=== PATIENT | female | born 1965 | race Caucasian/White ===

== ENCOUNTER → 2016-07-09 | Outpatient (REF) | payer MEDICARE, MEDICAID ==
[~2016-07-09] MED LIST: /CARB20TAB; /CARB4TA; ABIL10TA; ABIL15TA2 PO; ABIL1TAB7 PO; ABIL20TA2; ACET-654 PO; ACET65TA; ALBU17IN INH; AMMO12CR4 TOP; AMMONIUM LACTATE 12%; ARIP15TAB PO; CALC500C16 PO; CARB1TAB20 PO; CARB20TA PO; CEPA1LOZ5 PO; CLAR5CHW; CLARITIN10 PO; CLEO300C; COLA50CA5 PO; FERR325T; FERR325T PO; FERR325T3 PO; FERROUS325 PO; FLAG500T; FLON0.05; FLONASESPR NASAL; GEMF600T PO; LEVA500T; LEVA750T PO; LEVO125T3 PO; LEVO25TABR; LOPI600T; LOPID600 PO; LORA10TA2 PO; META48.54 PO; METAMUCIL PO; MILKSUS; MIRA3350 PO; MULTIVIT PO; NAPR250T; NICO21PAT TD; NICO2GUM62 PO; OCEA0.654; PANT20TA PO; PERC5TAB8; PERICOLACE PO; PRED20TA PO; RISATAB3 PO; SALI0.653; SENO8.6T5; SENOKOTTAB PO; SERO200T PO; SONA10CA6 PO; SYNT125T; SYNTHRO125 PO; SYNTHRO175 PO; SYNTHROI05 PO; SYNTHROI15 PO; TEGR200T; THERGRAN; TRAZ100T4 PO; TRAZ10TA PO; TRIPHASIL; VENTAER; VITA2000 PO; VITA20008 PO; VITAMIN D50000 UNT; VITMTA PO; ZYPR10TA PO; ZYPR20TA; ZYPR20TA PO; [UNRECOGNIZED DRUG - OTHER]; [UNRECOGNIZED DRUG - OTHER] PO; metamucil
[2016-07-09 18:44] LABS: ALBUMIN/GLOBULIN RATIO 1.14 (1.00-1.93); ALKALINE PHOSPHATASE 99 U/L (45-117); ALT/SGPT 15 U/L (12-78); ANION GAP 6 MEQ/L (8-16); AST/SGOT 11 U/L (15-37); BILIRUBIN,TOTAL 0.2 MG/DL (0.2-1.0); BLOOD UREA NITROGEN 12 MG/DL (7-18); CALCIUM LEVEL 8.7 MG/DL (8.5-10.1); CARBON DIOXIDE LEVEL 28 MEQ/L (21-32); CHLORIDE LEVEL 104 MEQ/L (98-107); CREATININE FOR GFR 0.55 MG/DL (0.55-1.02); GLOMERULAR FILTRATION RATE > 60.0 (>51); GLUCOSE, FASTING 78 MG/DL (70-105); POTASSIUM SERUM 4.1 MEQ/L (3.5-5.1); SODIUM LEVEL 138 MEQ/L (136-145); TOTAL PROTEIN 7.5 GM/DL (6.4-8.2)
[2016-07-09 19:05] LABS: MEAN CORPUSCULAR HEMOGLOBIN 33.7 pg (27.0-33.0); MEAN CORPUSCULAR VOLUME 96.5 fl (80.0-96.0); RED CELL DISTRIBUTION WIDTH 12.6 % (11.5-14.5); WHITE BLOOD COUNT 7.2 K/mm3 (4.0-10.0)
== END ==
LOC: M SFHCLERA 10:04
PROVIDERS: ATTEND Family Medicine
DX: E87.8 Other disorders of electrolyte and fluid balance, not elsewhere classified (principal)
CPT/HCPCS: 80053; 85027; G0463

== ENCOUNTER 2016-07-20 13:54 | Inpatient (IN) | payer MEDICARE, MEDICAID ==
[~2016-07-20] VITALS: Ht 154.9 cm; Wt 84.0 kg
[~2016-07-20 13:54] MED LIST changes: -ARIP15TAB PO; -CARB20TA PO; -COLA50CA5 PO; -NICO21PAT TD; -SERO200T PO; -SONA10CA6 PO; -TRAZ10TA PO; -VITA2000 PO; -[UNRECOGNIZED DRUG - OTHER]
[2016-07-20] MEDS ORDERED: [UNRECOGNIZED DRUG - OTHER] (14:13)
[2016-07-20] MEDS ORDERED: MIRA3350 PO (14:13)
[2016-07-20] MEDS ORDERED: metamucil (14:13)
[2016-07-20] MEDS ORDERED: SERO200T PO (14:13)
[2016-07-20] MEDS ORDERED: VITA2000 PO (14:13)
[2016-07-20] MEDS ORDERED: SONA10CA6 PO (14:13)
[2016-07-20] MEDS ORDERED: FERR325T PO (19:36)
[2016-07-20] MEDS ORDERED: COLA1CAP PO (19:36)
[2016-07-20 20:50] VITALS: BP 136/79
[2016-07-20] MEDS ORDERED: MAALOX 30 ML SUSP *UDC PO PRN (23:30)
[2016-07-20] MEDS ORDERED: MOM 30ML SUSPENSION UDC PO PRN (23:30)
[2016-07-21] MEDS ORDERED: traZODone 100 MG TAB PO ONE (00:30)
[2016-07-21] MEDS: ACETAMINOPHEN TAB 650MG DOSE (2X325MG) PO PRN ×3 (00:37→20:28)
[2016-07-21 06:00] VITALS: BP 128/72
[2016-07-21] MEDS: NICOTINE 21MG/24HR 1 EA TRANSDERMAL TD SCH (09:05)
[2016-07-21] MEDS: ARIPiprazole 15 MG TAB (AbiLIFY) PO SCH ×2 (09:47→20:25)
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
[2016-07-21] MEDS ORDERED: DOCUSATE SODIUM 100 MG CAP PO PRN (10:45)
[2016-07-21] MEDS ORDERED: SODIUM CHLORIDE NASAL 0.65% SPRAY BTL (OCEAN) PRN (10:45)
[2016-07-21] MEDS ORDERED: ALBUTEROL 90 MCG/ACT 8GM HFA INHALER INH PRN (10:45)
--- NOTE | 2016-07-21 10:55 | HPEPDOC ---
Medical History and Physical Date of Admission Jul 20, 2016 at 19:08 History and Physical PCP: Dr Fred Peters ATTENDING: Dr. Stefan Boyd HPI: 51yoF admitted to [facility] for Schizophrenia, being medically examined today. Patient complains of low back pain which is across her low back. She also complains of right hip pain. She is ambulating without any assistive devices. She does not have any weakness in her legs. No numbness or tingling. She does wear adult diapers. She states she has chronic urinary and bowel incontinence especially with sneezing or coughing. This has been unchanged for her. She does not complain of neck pain. No weakness, numbness, or tingling in upper extremities. Denies any fevers, chills, weakness, fatigue, OLIVER, CP, SOB, cough, palpitations, abdominal pain, N/V/D or changes in bowel or bladder habits. PMHx: Schizophrenia Hyperlipidemia Hypothyroidism Chronic venous insufficiency Vitamin D deficiency Seizure disorder Moderate mental retardation Obesity, BMI 35.0 Asthma Allergic rhinitis Chronic constipation Chronic low back pain PSHX: Pt is unable to provide accurate history, taken from clinic records Cholecystectomy Cleft palate repair Question of per chart Question of left lumbar hemilaminectomy at L5 x-ray Teeth extractions SOCHX: Resides in: [facility] residential home Marital Status: Single Kids: None Employment: Unemployed Tobacco use: 6 per day ETOH: One per week Illicit Drugs: Patient states uses marijuana IV Drug Use: Denies Tattoos done unprofessionally: Denies FAMHX: Mother: , cancer Father: , unknown Siblings: 2 Alive, well Children: None ROS: As noted in HPI, otherwise 11pt ROS of systems reviewed and remarkable only for LMP unknown PE: GEN: 51yoF, appears stated age. Well-nourished, well developed. No acute distress. Alert and oriented x 3. Pleasant, interactive. HEENT: Normocephalic, atraumatic. Pupils are equal, round, and reactive to light. Extraocular movements are intact. No nystagmus appreciated. Sclera are nonicteric. Conjunctiva without injection. Nose midline. Nasal turbinates without bogginess. EACs both patent BL. TMs both visualized and ashby with good cone of light, no bulging or erythema. No facial asymmetry. Moist mucous membranes. Dentition fair. Pharynx pink and moist, no cobblestoning. Neck supple , trachea midline. No lymphadenopathy or thyromegaly appreciated. CHEST: Regular rate and rhythm, +S1, +S2 LUNGS: Clear to auscultation bilaterally. No wheezes, rales, or rhonchi. Breathing appears symmetric and easy. Patient is speaking in full sentences. No accessory muscle use. ABD: Round, soft, non-tender, non-distended. +Bowel sounds throughout. No rebound or guarding. No costovertebral angle tenderness. EXT: Pulses 2+ bilaterally dorsalis pedis and radial. No lower extremity edema appreciated. SKIN: [place], dry, warm. Capillary refill <2sec. No rashes. NEURO: Alert and oriented x 3. Cranial nerves III-XII are intact. No focal deficits appreciated. EK07/17/15 SINUS RHYTHM WITH FIRST DEGREE AV BLOCK MARKED LEFT AXIS DEVIATION Absence of septal q waves noted 07-13-2015. Toxicology not obtained. A&P: 51yoF admitted to [facility] for Schizophrenia 1. Psych. Plan per Psychiatry. EKG on file. Baseline CBC/CMP/Hcg pending. Requested UA/UC as well. 2. Nicotine dependence. Patch available. 3. Borderline EKG. No cardiac signs or symptoms appreciated on exam, follow with PCP. 4. Follow up with PCP on discharge. 5. Substance use. Per psychiatry. 6. Asthma. Continue albuterol 2 puffs every 4 hours as needed. 7. Hyperlipidemia. Continue gemfibrozil 600 mg by mouth twice a day. 8. Hypothyroidism. Continue supplement. TSH is pending. 9. Allergic rhinitis. Continue loratadine. 10. Seizure disorder. Continue Tegretol 400 mg by mouth twice a day. Tegretol level is pending. 11. Vitamin D deficiency. Continue supplement. 12. Chronic constipation. Continue bowel care. 13. Chronic low back pain/right hip pain. Check x-ray of lumbosacral spine and right hip. Tylenol as needed. 14. Iron deficiency anemia. Continue ferrous sulfate 325 mg by mouth twice a day. 15. Antoinette CHERRY present throughout exam. Vital Signs Vital Signs Label Value Date Time Patient Temperature 97.8 degrees F 07/21/16 0600 Pulse 79 07/21/16 0600 Respiratory Rate 16 bpm 07/21/16 0600 Blood Pressure Assessment 128/72 (90) 07/21/16 0600 Bedside Pulse Oximetry 95 % 07/20/162049 Item Value Date Time Oxygen Delivery Method Room Air 07/20/162049 Laboratory Data Labs 24H Item Value Date Time White Blood Count 7.2 K/mm3 07/09/16 1033 Sodium Level 138 MEQ/L 07/09/16 1033 Potassium Level 4.1 MEQ/L 07/09/16 1033 Chloride Level 104 MEQ/L 07/09/16 1033 Carbon Dioxide Level 28 MEQ/L 07/09/16 1033 Anion Gap 6 MEQ/L L 07/09/16 1033 Blood Urea Nitrogen 12 MG/DL 07/09/16 1033 Creatinine 0.55 MG/DL 07/09/16 1033 Glomerular Filtration Rate > 60.0 07/09/16 1033 Fasting Glucose 78 MG/DL 07/09/16 1033 Calcium Level 8.7 MG/DL 07/09/16 1033 Total Bilirubin 0.2 MG/DL 07/09/16 1033 Aspartate Amino Transf (AST/SGOT) 11 U/L L 07/09/16 1033 Alanine Aminotransferase (ALT/SGPT) 15 U/L 07/09/16 1033 Alkaline Phosphatase 99 U/L 07/09/16 1033 Total Protein 7.5 GM/DL 07/09/16 1033 Albumin 4.0 GM/DL 07/09/16 1033 Albumin/Globulin Ratio 1.14 07/09/16 1033 Red Blood Count 3.67 M/mm3 L 07/09/16 1033 Hemoglobin 12.4 g/dl 07/09/16 1033 Hematocrit 35.4 % L 07/09/16 1033 Mean Corpuscular Volume 96.5 fl H 07/09/16 1033 Mean Corpuscular Hemoglobin 33.7 pg H 07/09/16 1033 Mean Corpuscular Hemoglobin Concent 35.0 g/dl 07/09/16 1033 Red Cell Distribution Width 12.6 % 07/09/16 1033 Platelet Count 123 k/mm3 L 07/09/16 1033 Home Medications Scheduled (Sonata) 10 Mg Cap 10 MG PO QHS Aripiprazole (Abilify) 20 Mg Tab 20 MG PO QHS Aripiprazole (Abilify) 15 Mg Tab 15 MG PO QAM Carbamazepine (Carbamazepine) 200 Mg Tab 400 MG PO BID Cholecalciferol (Vitamin D3) 2,000 Unit Cap 2,000 UNIT PO DAILY Docusate Sodium (Colace Clear) 50 Mg Cap 50 MG PO DAILY Ferrous Sulfate (Ferrous Sulfate) 325 Mg Tab 325 MG PO BID Gemfibrozil (Gemfibrozil) 600 Mg Tab 600 MG PO BID Levothyroxine Sodium (Synthroid) 125 Mcg Tab 125 MCG PO QAM Loratadine (Loratadine) 10 Mg Tab 10 MG PO DAILY Multivitamins *[facility] STOCKED* (Thera M Plus *[facility] STOCKED*) 1 Tab Tab 1 TAB PO DAILY Polyethylene Glycol (Miralax) 1 Pow Pow 17 GM PO QWEEK FRIDAYS Psyllium (Metamucil) 48.57 % Pow 1 TSP PO QHS Quetiapine Fumerate (Seroquel) 200 Mg Tab 200 MG PO QHS Trazodone HCl (Trazodone HCl) 100 Mg Tab 100 MG PO QHS Scheduled PRN (Saline Nasal [place]) 0.65 % Spr 0.65 % NA PRN PRN PRN CONGESTION (Ammonium Lactate) 12 % Cre 12 % TOP DAILY PRN PRN DRY SKIN applies to feet Acetaminophen (Acetaminophen) 325 Mg Tab 650 MG PO Q4H PRN PRN PAIN Albuterol Sulfate (Ventolin Hfa) 200 Puff/8 Gm Aers 2 PUFF INH Q4H PRN PRN SHORTNESS OF BREATH Allergies Coded Allergies: Lurasidone (Verified Allergy, Severe, manic, hallucinations, 07/20/16) Oxycodone (Verified Allergy, Mild, HIVES, 07/29/12) Penicillins (Verified Allergy, Mild, HIVES, 07/29/12) Amoxicillin (Unverified Allergy, Unknown, UNKNOWN, 07/13/15) Cephalosporins (Verified Allergy, Unknown, 07/29/12) SEASONAL ALLERGIES (Verified Allergy, Unknown, 10/16/09) Genevieve Naik Jul 21, 2016 10:55
[2016-07-21] MEDS: VITAMIN D 1,000 INTERNATIONAL UNITS TABLET PO SCH (11:30)
[2016-07-21] MEDS: carBAMazepine 200 MG TAB PO SCH ×2 (11:30→20:25)
[2016-07-21] MEDS: LORATADINE 10 MG TAB PO SCH (11:30)
[2016-07-21] MEDS: FERROUS SULFATE 325MG TAB PO SCH ×2 (11:30→20:26)
--- NOTE | 2016-07-21 11:43 | REP ---
PARTIAL LUMBAR SPINE, FOUR VIEWS: HISTORY: Back pain. COMPARISON: 08/21/2008 There is no acute fracture. The L4-5 and L5-S1 intervertebral discs are decreased in height consistent with disc degeneration. There are 4 mm on grade 1 spondylolisthesis of L5 on S1. The patient is status post left L4-5 laminectomy. Surgical clips are present in the right upper quadrant. IMPRESSION: Degenerative change as described above. Signed by Malik Tsang MD 07/21/2016 11:46 A
[2016-07-21 11:47] LABS: MEAN CORPUSCULAR HEMOGLOBIN 32.8 pg (27.0-33.0); MEAN CORPUSCULAR HGB CONC 35.8 g/dl (32.0-36.5); MEAN CORPUSCULAR VOLUME 91.5 fl (80.0-96.0); RED CELL DISTRIBUTION WIDTH 12.2 % (11.5-14.5)
--- NOTE | 2016-07-21 11:47 | REP ---
RIGHT HIP, TWO VIEWS: HISTORY: Pain. COMPARISON: 08/21/2008 There is no acute fracture or dislocation. There is narrowing of the joint space. IMPRESSION: Degenerative change as described above. Signed by Malik Tsang MD 07/21/2016 11:56 A
[2016-07-21 11:52] LABS: CONTROL LINE HCG INT CTR LINE PRESENT
[2016-07-21] MEDS: GEMFIBROZIL 600 MG TAB PO SCH ×2 (12:17→20:27)
[2016-07-21 12:18] LABS: ALBUMIN 3.9 GM/DL (3.2-5.2); ALBUMIN/GLOBULIN RATIO 1.03 (1.00-1.93); ALKALINE PHOSPHATASE 110 U/L (45-117); ALT/SGPT 21 U/L (12-78); ANION GAP 6 MEQ/L (8-16); AST/SGOT 18 U/L (15-37); BILIRUBIN,TOTAL 0.3 MG/DL (0.2-1.0); BLOOD UREA NITROGEN 9 MG/DL (7-18); CARBON DIOXIDE LEVEL 27 MEQ/L (21-32); CHLORIDE LEVEL 102 MEQ/L (98-107); CREATININE FOR GFR 0.44 MG/DL (0.55-1.02); GLOMERULAR FILTRATION RATE > 60.0 (>51); GLUCOSE, FASTING 80 MG/DL (70-105); POTASSIUM SERUM 4.1 MEQ/L (3.5-5.1); SODIUM LEVEL 135 MEQ/L (136-145); TOTAL PROTEIN 7.7 GM/DL (6.4-8.2)
[2016-07-21 18:23] VITALS: BP 123/69
[2016-07-21] MEDS ORDERED: hydrOXYzine 50 MG TAB PO ONE (19:15)
[2016-07-21] MEDS: METAMUCIL (PSYLLIUM) PACKET PO SCH (20:25)
[2016-07-21] MEDS: QUEtiapine FUMARATE 200 MG TAB PO SCH (20:26)
[2016-07-21] MEDS: traZODone 100 MG TAB PO SCH (20:27)
[2016-07-22 06:22] VITALS: BP 114/77
[2016-07-22] MEDS: LEVOTHYROXINE 0.125 MG TAB (125 MCG) PO SCH (06:30)
[2016-07-22] MEDS: NICOTINE 21MG/24HR 1 EA TRANSDERMAL TD SCH (08:36)
[2016-07-22] MEDS: carBAMazepine 200 MG TAB PO SCH ×2 (08:37→21:38)
[2016-07-22] MEDS: GEMFIBROZIL 600 MG TAB PO SCH ×2 (08:37→21:38)
[2016-07-22] MEDS: ARIPiprazole 15 MG TAB (AbiLIFY) PO SCH ×2 (08:37→21:38)
[2016-07-22] MEDS: ACETAMINOPHEN TAB 650MG DOSE (2X325MG) PO PRN (08:37)
[2016-07-22] MEDS: FERROUS SULFATE 325MG TAB PO SCH ×2 (08:37→21:38)
[2016-07-22] MEDS: VITAMIN D 1,000 INTERNATIONAL UNITS TABLET PO SCH (08:37)
[2016-07-22] MEDS: LORATADINE 10 MG TAB PO SCH (08:37)
[2016-07-22] MEDS ORDERED: ONDANSETRON 4 MG ORAL DISINTEGRATING TAB (S0181) PO ONE (09:15)
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
[2016-07-22 18:00] VITALS: BP 115/73
[2016-07-22] MEDS: METAMUCIL (PSYLLIUM) PACKET PO SCH (21:38)
[2016-07-22] MEDS: QUEtiapine FUMARATE 200 MG TAB PO SCH (21:38)
[2016-07-22] MEDS: traZODone 100 MG TAB PO SCH (21:38)
[2016-07-23] MEDS: LEVOTHYROXINE 0.125 MG TAB (125 MCG) PO SCH (05:53)
[2016-07-23 06:12] VITALS: BP 150/68
[2016-07-23 07:48] LABS: ALBUMIN 3.7 GM/DL (3.2-5.2); ALBUMIN/GLOBULIN RATIO 1.09 (1.00-1.93); ALKALINE PHOSPHATASE 96 U/L (45-117); ALT/SGPT 19 U/L (12-78); ANION GAP 9 MEQ/L (8-16); AST/SGOT 13 U/L (15-37); BILIRUBIN,TOTAL 0.2 MG/DL (0.2-1.0); BLOOD UREA NITROGEN 8 MG/DL (7-18); CALCIUM LEVEL 8.1 MG/DL (8.5-10.1); CARBON DIOXIDE LEVEL 24 MEQ/L (21-32); CHLORIDE LEVEL 100 MEQ/L (98-107); CREATININE FOR GFR 0.51 MG/DL (0.55-1.02); GLOMERULAR FILTRATION RATE > 60.0 (>51); GLUCOSE, FASTING 93 MG/DL (70-105); POTASSIUM SERUM 4.1 MEQ/L (3.5-5.1); SODIUM LEVEL 133 MEQ/L (136-145); T UPTAKE 32 % (30-39); THYROXINE (T4) 4.1 UG/DL (4.5-12.0); TOTAL PROTEIN 7.1 GM/DL (6.4-8.2)
[2016-07-23 08:27] LABS: MEAN CORPUSCULAR HEMOGLOBIN 33.2 pg (27.0-33.0); MEAN CORPUSCULAR HGB CONC 35.9 g/dl (32.0-36.5); MEAN CORPUSCULAR VOLUME 92.4 fl (80.0-96.0); RED CELL DISTRIBUTION WIDTH 12.2 % (11.5-14.5); WHITE BLOOD COUNT 5.9 K/mm3 (4.0-10.0)
[2016-07-23] MEDS: NICOTINE 21MG/24HR 1 EA TRANSDERMAL TD SCH (09:00)
[2016-07-23] MEDS: ARIPiprazole 15 MG TAB (AbiLIFY) PO SCH ×2 (09:24→20:31)
[2016-07-23] MEDS: LORATADINE 10 MG TAB PO SCH (09:24)
[2016-07-23] MEDS: GEMFIBROZIL 600 MG TAB PO SCH ×2 (09:24→20:31)
[2016-07-23] MEDS: VITAMIN D 1,000 INTERNATIONAL UNITS TABLET PO SCH (09:24)
[2016-07-23] MEDS: FERROUS SULFATE 325MG TAB PO SCH ×2 (09:24→20:31)
[2016-07-23] MEDS: carBAMazepine 200 MG TAB PO SCH ×2 (09:24→20:33)
[2016-07-23] MEDS: ACETAMINOPHEN TAB 650MG DOSE (2X325MG) PO PRN (09:25)
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
[2016-07-23 18:00] VITALS: BP 112/66
[2016-07-23] MEDS: traZODone 100 MG TAB PO SCH (20:30)
[2016-07-23] MEDS: QUEtiapine FUMARATE 200 MG TAB PO SCH (20:31)
[2016-07-23] MEDS: METAMUCIL (PSYLLIUM) PACKET PO SCH (20:33)
[2016-07-24] MEDS: LEVOTHYROXINE 0.125 MG TAB (125 MCG) PO SCH (06:06)
[2016-07-24 06:38] VITALS: BP 137/84
[2016-07-24] MEDS ORDERED: TRAZ10TA PO (06:59)
[2016-07-24] MEDS ORDERED: CARB20TA PO (06:59)
[2016-07-24] MEDS ORDERED: ARIP15TAB PO (06:59)
[2016-07-24 07:26] LABS: BASO % 0.2 % (0.0-1.0); EOS % 0.3 % (0.0-3.0); LARGE UNSTAINED CELL # 0.1 K/mm3 (0.0-0.4); LARGE UNSTAINED CELL % 1.8 % (0.0-4.0); LYMPH % 43.4 % (24.0-44.0); MEAN CORPUSCULAR HEMOGLOBIN 33.6 pg (27.0-33.0); MEAN CORPUSCULAR HGB CONC 35.8 g/dl (32.0-36.5); MEAN CORPUSCULAR VOLUME 93.9 fl (80.0-96.0); MONO # 0.3 K/mm3 (0.0-0.8); NEUTROPHILS # 3.3 K/mm3 (1.8-7.7); NEUTROPHILS % 50.4 % (36.0-66.0); PLATELET COUNT, AUTOMATED 176 k/mm3 (150-450); RED CELL DISTRIBUTION WIDTH 12.4 % (11.5-14.5); WHITE BLOOD COUNT 6.6 K/mm3 (4.0-10.0)
[2016-07-24] MEDS: GEMFIBROZIL 600 MG TAB PO SCH (08:50)
[2016-07-24] MEDS: FERROUS SULFATE 325MG TAB PO SCH (08:50)
[2016-07-24] MEDS: LORATADINE 10 MG TAB PO SCH (08:50)
[2016-07-24] MEDS: VITAMIN D 1,000 INTERNATIONAL UNITS TABLET PO SCH (08:50)
[2016-07-24] MEDS: ARIPiprazole 15 MG TAB (AbiLIFY) PO SCH (08:50)
[2016-07-24] MEDS: NICOTINE 21MG/24HR 1 EA TRANSDERMAL TD SCH (08:51)
[2016-07-24] MEDS: carBAMazepine 200 MG TAB PO SCH (08:51)
[2016-07-24] MEDS ORDERED: NICO21PAT TD (09:19)
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
== END 2016-07-24 14:00 | disposition home or self-care (01) | DRG 885 ==
LOC: M ED 16:55 → M ED INP 19:08 → M PSY 20:50
PROVIDERS: ADMIT Psychiatry & Neurology Psychiatry; ATTEND Psychiatry & Neurology Child & Adolescent Psychiatry
DX: F29 Unspecified psychosis not due to a substance or known physiological condition (principal); E78.5 Hyperlipidemia, unspecified; E03.9 Hypothyroidism, unspecified; E55.9 Vitamin D deficiency, unspecified; D50.9 Iron deficiency anemia, unspecified; E66.9 Obesity, unspecified; Z88.0 Allergy status to penicillin; Z88.5 Allergy status to narcotic agent; K59.00 Constipation, unspecified; M54.5 Low back pain; F17.200 Nicotine dependence, unspecified, uncomplicated; G40.909 Epilepsy, unspecified, not intractable, without status epilepticus; J30.9 Allergic rhinitis, unspecified; F71 Moderate intellectual disabilities

== ENCOUNTER → 2016-08-12 | Outpatient (REF) | payer MEDICARE, MEDICAID ==
[~2016-08-12] MED LIST changes: +ARIP15TAB PO; +CARB20TA PO; +COLA50CA5 PO; +NICO21PAT TD; +SERO200T PO; +SONA10CA6 PO; +TRAZ10TA PO; +VITA2000 PO; +[UNRECOGNIZED DRUG - OTHER]
== END ==
LOC: M SFHCLERA 09:03
PROVIDERS: ATTEND Family Medicine
DX: D23.61 Other benign neoplasm of skin of right upper limb, including shoulder (principal)

== ENCOUNTER 2016-09-15 09:12 | Outpatient (RCR) | payer MEDICARE, MEDICAID | END 2016-09-23 | disposition home or self-care (01) | LOC: M PT 09:12 | PROVIDERS: ATTEND Family Medicine | DX: Z51.89 Encounter for other specified aftercare (principal); M25.551 Pain in right hip | CPT/HCPCS: 97110; 97140; 97162; G8978; G8979; G8980 ==

== ENCOUNTER → 2016-12-07 | Outpatient (CLI) | payer MEDICARE, MEDICAID ==
[~2016-12-07] MED LIST changes: -ABIL15TA2 PO; +ABIL1TAB12 PO; -ABIL1TAB7 PO; +ABIL20TA5 PO; +ABIL30TA4 PO; -ACET-654 PO; +ACET1TAB17 PO; +FERR1TAB8 PO; -FERR325T PO; -LEVA750T PO; +LEVA750T7 PO; -LEVO125T3 PO; +LEVO125T4 PO; +LITH300C PO; +MINI2CAP PO; +SALI0.6523; -SALI0.653; +SONA10CA23 PO; -SONA10CA6 PO; +TRAZ-136 PO; -TRAZ100T4 PO
--- NOTE | 2016-12-07 11:32 | REP ---
Bilateral lower extremity duplex venous ultrasound: History: Bilateral varicose veins. Question reflux. Findings: The deep veins are anechoic and fully compressible from the groin to the popliteal fossa in both lower extremities on two-dimensional scanning. Color flow imaging is homogeneous. Spectral Doppler interrogation shows normal manual augmentation of flow and respiratory variation in flow bilaterally. There is no evidence of deep vein thrombosis. Reflux findings: In the right lower extremity, no deep or superficial vein reflux is identified. The greater saphenous vein measures 4 mm in AP dimension at the saphenofemoral junction, 3 mm in AP dimension at the midthigh, and 2 mm in AP dimension at the knee. On the left, reflux greater than 0.5 seconds in duration is seen in the common femoral vein. 4.3 second duration reflux is observed in the greater saphenous vein at the saphenofemoral junction where it measures 15 mm in AP dimension. Reflux lasting 8.5 seconds in duration is seen in a 7 mm greater saphenous vein at mid thigh level. No reflux is observed at the knee and the greater saphenous vein at this level measures 2.3 mm. The lesser saphenous vein showed no evidence of reflux and measured 4.4 mm. No other deep system reflux is seen. There are collateral varicose veins in the lower leg. Impression: 1. No evidence of DVT. 2. Significant reflux is noted on the left involving greater saphenous vein and also in the common femoral vein. Signed by Alejandro Romeo MD 12/07/2016 02:11 P
== END ==
LOC: M RAD 08:37
PROVIDERS: ATTEND Surgery Vascular Surgery
DX: I83.813 Varicose veins of bilateral lower extremities with pain (principal)

== ENCOUNTER 2017-01-22 07:42 | Day surgery (SDC) | payer MEDICARE, MEDICAID ==
[~2017-01-22] VITALS: Ht 154.9 cm; Wt 88.9 kg
[2017-01-22] MEDS ORDERED: LR 1,000 ML IV ONE (07:45)
[2017-01-22] MEDS ORDERED: LIDOCAINE W/EPINEPHRINE 1% 20ML VIAL As Ordered ONE (08:37)
[2017-01-22] MEDS ORDERED: fentaNYL 100 MCG/2 ML INJECTION (J3010) As Ordered ONE ×2 (09:06→09:25)
[2017-01-22] MEDS ORDERED: MIDAZOLAM INJ 2 MG/2 ML VIAL (J2250) As Ordered ONE (09:06)
[2017-01-22] MEDS ORDERED: PROPOFOL 200 MG/20 ML VIAL As Ordered ONE ×2 (09:06→09:40)
[2017-01-22] MEDS ORDERED: LIDOCAINE 2% INJ 100 MG/5 ML SDV (FOR ANES.) As Ordered ONE (09:06)
[2017-01-22] MEDS ORDERED: ACETAMINOPHEN TAB 650MG DOSE (2X325MG) PO ONE (10:15)
[2017-01-22 11:05] VITALS: BP 126/66
--- NOTE | 2017-02-03 12:17 | RO ---
DATE OF PROCEDURE: 01/22/2017 PREPROCEDURE DIAGNOSES: Left lower extremity varicose veins. Left lower extremity greater saphenous vein valvular insufficiency. Left lower extremity pain, swelling, numbness, tingling, and discoloration. POSTPROCEDURE DIAGNOSES: Left lower extremity varicose veins. Left lower extremity greater saphenous vein valvular insufficiency. Left lower extremity pain, swelling, numbness, tingling, and discoloration. PROCEDURE: Left greater saphenous vein radiofrequency ablation greater than 20 stab phlebectomies of varicose veins in the left lower extremity. ATTENDING SURGEON: Dr. Kaci Peter DISC JOCKEY: None. ANESTHESIA: Local monitored anesthesia care (MAC). INDICATION: The patient is a 51-year-old female with significant pain and discomfort in her left lower extremity with a large number of large varicosities who underwent evaluation, was found to have left greater saphenous vein valvular insufficiency. Patient was evaluated, and recommendation was to undergo a left greater saphenous vein radiofrequency ablation with stab phlebectomy of the varicosities. Risks, benefits, and alternative treatment options were discussed with the patient. Alternative treatment options included, but were not limited to, no intervention. Benefits included, but were not limited to, relief of symptoms. Risks included, but were not limited to, infection, bleeding, renal failure requiring hemodialysis, possible need for further open surgical intervention, cerebrovascular accident, myocardial infarction, pulmonary embolus, deep venous thrombosis (DVT), loss of limb, loss of life, and poor outcome. Patient's questions were answered. Patient voices understanding of these risks, benefits, and alternative treatment options and agrees to proceed and accepts the associated risks of the procedure. Patient's health care proxy is her sister, who provided consent for the procedure. ESTIMATED BLOOD LOSS: 50 mL. INTRAVENOUS FLUIDS: 300 mL. SPECIMEN: Left lower extremity varicose veins. COMPLICATIONS: None. DRAINS: None. IMPLANTS: None. DESCRIPTION OF PROCEDURE: Patient was taken to the operating room, placed supine on the operating room table, and the left lower extremity was prepped and draped in a standard surgical fashion. Ultrasound was then used to guide cannulation into the left greater saphenous vein. A catheter was placed in the greater saphenous vein after which the tumescent solution was then directed circumferentially around the greater saphenous vein, and the greater saphenous vein was then ablated from 2 cm distal to the saphenofemoral junction to the entry site in the below-knee region. The phlebectomies were then performed through multiple stab incisions with greater than 20 stab phlebectomies performed. The stab incisions were closed with trevor. Dressings were then applied. Patient tolerated the procedure well. All instruments, sponge, and needle counts were correct at the end of the case. There were no complications. Dr. Peter was present for and directed the entire case. Patient was transferred to the recovery room, awake, alert, extubated, and in stable condition.
== END 2017-01-22 11:25 | disposition home or self-care (01) ==
LOC: M SDC 07:42
PROVIDERS: ATTEND Surgery Vascular Surgery
DX: I83.812 Varicose veins of left lower extremity with pain (principal); I87.2 Venous insufficiency (chronic) (peripheral); E03.9 Hypothyroidism, unspecified; E78.00 Pure hypercholesterolemia, unspecified; F41.9 Anxiety disorder, unspecified; F32.9 Major depressive disorder, single episode, unspecified; F43.10 Post-traumatic stress disorder, unspecified; F20.0 Paranoid schizophrenia; K59.00 Constipation, unspecified; D64.9 Anemia, unspecified; F70 Mild intellectual disabilities; R56.9 Unspecified convulsions; J30.9 Allergic rhinitis, unspecified; G47.33 Obstructive sleep apnea (adult) (pediatric); Z88.0 Allergy status to penicillin; Z88.1 Allergy status to other antibiotic agents; Z88.5 Allergy status to narcotic agent; Z79.899 Other long term (current) drug therapy; Z72.0 Tobacco use
CPT/HCPCS: 36475; 37766; 88300; J2250; J3010

== ENCOUNTER → 2017-02-01 | Outpatient (CLI) | payer MEDICARE, MEDICAID ==
--- NOTE | 2017-02-01 12:35 | REP ---
UNILATERAL LEFT LOWER EXTREMITY DUPLEX VENOUS: HISTORY: Deep venous thrombosis. COMPARISON: 12/07/2016 The patient is status post ablation of the greater saphenous vein. There are no filling defects in the deep venous system. The deep venous system is patent. IMPRESSION: There is no deep venous thrombosis. Signed by Malik Tsang MD 02/01/2017 12:43 P
== END ==
LOC: M RAD 11:09
PROVIDERS: ATTEND Surgery Vascular Surgery
DX: I83.812 Varicose veins of left lower extremity with pain (principal)

== ENCOUNTER → 2017-03-12 | Outpatient (CLI) | payer MEDICARE, MEDICAID ==
--- NOTE | 2017-03-12 09:35 | REPMRS ---
Patient History The patient states she has not had a clinical breast exam in over a year. Patient is postmenopausal and is nulliparous. No known family history of cancer. Took hormonal contraceptives for 25 years. Digital Mammo Screening Bilat: March 12, 2017 - Exam #: [id number] Bilateral CC and MLO view(s) were taken. Technologist: Sidra Hamm Technologist Prior study comparison: February 18, 2016, digital woman screen mammo, performed at [facility]. November 26, 2014, digital bilateral screening mammo, performed at [facility]. FINDINGS: There are scattered fibroglandular densities. There has been no change in the appearance of the mammogram from the prior studies. There is a mild amount of residual fibroglandular tissue which is fairly symmetric. There is no interval development of dominant mass, architectural distortion, or clustered microcalcification suggestive of malignancy. ASSESSMENT: BI-RADS/ACR category 1 mammogram. Negative. Recommendation Routine screening mammogram in 1 year (for women over age 40). This mammogram was interpreted with the aid of an FDA-approved computer-aided dectection system. Electronically Signed By: Mendez Pina MD 03/12/17 [id number]
== END ==
LOC: M RAD 08:52
PROVIDERS: ATTEND Physician Assistant
DX: Z12.31 Encounter for screening mammogram for malignant neoplasm of breast (principal); Z78.0 Asymptomatic menopausal state; Z92.0 Personal history of contraception

== ENCOUNTER → 2017-05-11 | Outpatient (REF) | payer MEDICARE, MEDICAID | LOC: M SFHCLERA 14:48 | DX: E03.9 Hypothyroidism, unspecified (principal) | CPT/HCPCS: 84443 ==

== ENCOUNTER → 2017-05-17 | Outpatient (CLI) | payer MEDICARE, MEDICAID | LOC: M WUC 17:18 | DX: R06.2 Wheezing (principal) | CPT/HCPCS: 71046 ==

== ENCOUNTER → 2017-07-28 | Outpatient (REF) | payer MEDICARE, MEDICAID | LOC: M SFHCLERA 15:49 | DX: F20.9 Schizophrenia, unspecified (principal); Z53.8 Procedure and treatment not carried out for other reasons ==

== ENCOUNTER → 2017-10-21 | Outpatient (CLI) | payer MEDICARE, MEDICAID ==
[2017-10-21 08:08] LABS: BASO % 0.1 % (0.0-1.0); HEMATOCRIT 39.3 % (36.0-47.0); IMMATURE GRANULOCYTE % 0.4 % (0-3.0); LYMPH # 2.5 10^3/uL (1.5-4.5); LYMPH % 30.6 % (24.0-44.0); MEAN CORPUSCULAR HEMOGLOBIN 33.9 pg (27.0-33.0); MEAN CORPUSCULAR HGB CONC 35.6 g/dl (32.0-36.5); MEAN CORPUSCULAR VOLUME 95.2 fl (80.0-96.0); MONO # 0.5 10^3/uL (0.0-0.8); NEUTROPHILS # 5.2 10^3/uL (1.8-7.7); NEUTROPHILS % 62.9 % (36.0-66.0); PLATELET COUNT, AUTOMATED 188 10^3/uL (150-450); RED BLOOD COUNT 4.13 10^6/uL (4.00-5.40); WHITE BLOOD COUNT 8.3 10^3/uL (4.0-10.0)
[2017-10-21 08:57] LABS: ALBUMIN 3.7 GM/DL (3.2-5.2); ALKALINE PHOSPHATASE 110 U/L (45-117); ALT/SGPT 19 U/L (12-78); ANION GAP 7 MEQ/L (8-16); AST/SGOT 10 U/L (7-37); BILIRUBIN,TOTAL 0.4 MG/DL (0.2-1.0); BLOOD UREA NITROGEN 9 MG/DL (7-18); CALCIUM LEVEL 8.6 MG/DL (8.5-10.1); CARBAMAZEPINE (TEGRETOL) LEVEL 8.3 UG/ML (4.0-10.0); CARBON DIOXIDE LEVEL 27 MEQ/L (21-32); CHLORIDE LEVEL 108 MEQ/L (98-107); CHOLESTEROL LEVEL 144 MG/DL (<200); CHOLESTEROL RISK RATIO 2.571 (<5); CREATININE FOR GFR 0.51 MG/DL (0.55-1.30); GLOMERULAR FILTRATION RATE > 60.0 (>51); GLUCOSE, FASTING 94 MG/DL (70-100); HDL CHOLESTEROL 56 MG/DL (>40); LDL CHOLESTEROL 60.2 MG/DL (<100); NON-HDL-C 88 MG/DL; POTASSIUM SERUM 4.1 MEQ/L (3.5-5.1); SODIUM LEVEL 142 MEQ/L (136-145); TOTAL PROTEIN 7.4 GM/DL (6.4-8.2); TRIGLYCERIDES LEVEL 139 MG/DL (<150)
[2017-10-21 09:02] LABS: LITHIUM LEVEL 0.42 MEQ/L (0.60-1.20)
[2017-10-21 10:25] LABS: ESTIMATED AVERAGE GLUCOSE 88 MG/DL (60-110); HEMOGLOBIN A1c 4.7 %
== END ==
LOC: M LAB 07:29
DX: F25.9 Schizoaffective disorder, unspecified (principal)
CPT/HCPCS: 80178

== ENCOUNTER → 2017-11-04 | Outpatient (CLI) | payer MEDICARE, MEDICAID | LOC: M RAD 16:02 | DX: M79.661 Pain in right lower leg (principal) | CPT/HCPCS: 93971 ==

== ENCOUNTER → 2018-03-30 | Outpatient (CLI) | payer MEDICARE, MEDICAID | LOC: M RAD 14:40 | DX: Z12.31 Encounter for screening mammogram for malignant neoplasm of breast (principal); Z92.0 Personal history of contraception | CPT/HCPCS: 77067 ==

== ENCOUNTER → 2018-04-06 | Outpatient (REF) | payer MEDICARE, MEDICAID ==
[2018-04-06 17:19] LABS: HEMATOCRIT 41.9 % (36.0-47.0); HEMOGLOBIN 14.3 g/dl (12.0-15.5); MEAN CORPUSCULAR HEMOGLOBIN 33.5 pg (27.0-33.0); MEAN CORPUSCULAR HGB CONC 34.1 g/dl (32.0-36.5); MEAN CORPUSCULAR VOLUME 98.1 fl (80.0-96.0); PLATELET COUNT, AUTOMATED 168 10^3/uL (150-450); RED BLOOD COUNT 4.27 10^6/uL (4.00-5.40); WHITE BLOOD COUNT 8.6 10^3/uL (4.0-10.0)
[2018-04-06 17:33] LABS: ALBUMIN 3.8 GM/DL (3.2-5.2); ALKALINE PHOSPHATASE 117 U/L (45-117); ALT/SGPT 18 U/L (12-78); ANION GAP 6 MEQ/L (8-16); AST/SGOT 12 U/L (7-37); BILIRUBIN,TOTAL 0.3 MG/DL (0.2-1.0); BLOOD UREA NITROGEN 9 MG/DL (7-18); CALCIUM LEVEL 8.9 MG/DL (8.5-10.1); CARBAMAZEPINE (TEGRETOL) LEVEL 4.3 UG/ML (4.0-10.0); CARBON DIOXIDE LEVEL 28 MEQ/L (21-32); CHLORIDE LEVEL 106 MEQ/L (98-107); CHOLESTEROL LEVEL 153 MG/DL (<200); CHOLESTEROL RISK RATIO 2.833 (<5); CREATININE FOR GFR 0.62 MG/DL (0.55-1.30); GLOMERULAR FILTRATION RATE > 60.0 (>51); GLUCOSE, FASTING 89 MG/DL (70-100); HDL CHOLESTEROL 54 MG/DL (>40); LDL CHOLESTEROL 80 MG/DL (<100); NON-HDL-C 99 MG/DL; POTASSIUM SERUM 4.1 MEQ/L (3.5-5.1); SODIUM LEVEL 140 MEQ/L (136-145); TOTAL PROTEIN 7.6 GM/DL (6.4-8.2); TRIGLYCERIDES LEVEL 96 MG/DL (<150)
[2018-04-06 19:00] LABS: ESTIMATED AVERAGE GLUCOSE 105 MG/DL (60-110); HEMOGLOBIN A1c 5.3 %
== END ==
LOC: M SFHCLERA 11:41
DX: F20.9 Schizophrenia, unspecified (principal)
CPT/HCPCS: 80156

== ENCOUNTER → 2018-05-13 | Outpatient (REF) | payer MEDICARE, MEDICAID ==
[~2018-05-13] MED LIST changes: -ACET1TAB17 PO; +ACET1TAB55 PO; -GEMF600T PO; +GEMF600T5 PO; -LORA10TA2 PO; +LORA10TA3 PO; -PANT20TA PO; +PANT20TA2 PO; -SALI0.6523; +SALI0.6528; -TRAZ-136 PO; +TRAZ-163 PO
== END ==
LOC: M SFHCLERA 11:15
PROVIDERS: ATTEND Family Medicine
DX: E03.9 Hypothyroidism, unspecified (principal)

== ENCOUNTER → 2018-08-02 | Outpatient (REF) | payer MEDICARE, MEDICAID ==
[~2018-08-02] MED LIST changes: -/CARB20TAB; -/CARB4TA; +AMBI10TA PO; -AMMO12CR4 TOP; +AMMO12CR7 TOP; -ARIP15TAB PO; +ARIP1TAB10 PO; +CARB1TAB20; -CEPA1LOZ5 PO; +CEPALOZ8 PO; +TEGR1TAB2; +TEGR200T PO
== END ==
LOC: M SFHCPLAZ 18:00
PROVIDERS: ATTEND Dermatology
DX: B07.9 Viral wart, unspecified (principal); L91.8 Other hypertrophic disorders of the skin

== ENCOUNTER 2018-08-22 10:17 | Day surgery (SDC) | payer MEDICARE, MEDICAID ==
[~2018-08-22] VITALS: Ht 185.4 cm; Wt 90.3 kg
[2018-08-22] MEDS ORDERED: NS 1,000 ML IV ONE (11:45)
[2018-08-22] MEDS ORDERED: LIDOCAINE 2% INJ 100 MG/5 ML SDV (FOR ANES.) As Ordered ONE (13:17)
[2018-08-22] MEDS ORDERED: PROPOFOL 200 MG/20 ML VIAL As Ordered ONE (13:17)
--- NOTE | 2018-08-22 13:46 | ROOR ---
Patient Name: Yadira Beltran Procedure Date: 08/22/2018 1:03 PM Date of : 1965 Age: 53 Room: [facility] Gender: Female Note Status: Finalized Procedure: Colonoscopy Indications: Screening for colorectal malignant neoplasm Providers: Joni Gomes MD Referring MD: Mendez BARBOSA MD Requesting Provider: Medicines: Monitored Anesthesia Care Complications: No immediate complications. Procedure: Pre-Anesthesia Assessment: - Prior to the procedure, a History and Physical was performed, and patient medications and allergies were reviewed. The patient is competent. The risks and benefits of the procedure and the sedation options and risks were discussed with the patient. All questions were answered and informed consent was obtained. Patient identification and proposed procedure were verified by the physician, the nurse and the anesthesiologist in the procedure room. Mental Status Examination: alert and oriented. Airway Examination: normal oropharyngeal airway and neck mobility. Respiratory Examination: clear to auscultation. CV Examination: normal. Prophylactic Antibiotics: The patient does not require prophylactic antibiotics. Prior Anticoagulants: The patient has taken no previous anticoagulant or antiplatelet agents. ASA Grade Assessment: II - A patient with mild systemic disease. After reviewing the risks and benefits, the patient was deemed in satisfactory condition to undergo the procedure. The anesthesia plan was to use monitored anesthesia care (MAC). Immediately prior to administration of medications, the patient was re-assessed for adequacy to receive sedatives. The heart rate, respiratory rate, oxygen saturations, blood pressure, adequacy of pulmonary ventilation, and response to care were monitored throughout the procedure. The physical status of the patient was re-assessed after the procedure. The Colonoscope was introduced through the anus and advanced to the terminal ileum, with identification of the appendiceal orifice and IC valve. The colonoscopy was performed without difficulty. The patient tolerated the procedure well. The quality of the bowel preparation was good. The terminal ileum, ileocecal valve, appendiceal orifice, and rectum were photographed. Scope insertion time was 3 minutes. Scope withdrawal time was 9 minutes. The total duration of the procedure was 12 minutes. Findings: The perianal and digital rectal examinations were normal. The terminal ileum appeared normal. Two sessile polyps were found in the ascending colon. The polyps were 10 to 12 mm in size. These polyps were removed with a cold snare. Resection and retrieval were complete. Verification of patient identification for the specimen was done by the physician and nurse using the patient's name, date and medical record number. Estimated blood loss was minimal. Three sessile polyps were found in the transverse colon. The polyps were 6 to 10 mm in size. These polyps were removed with a cold snare. Resection and retrieval were complete. A few small and large-mouthed diverticula were found in the sigmoid colon. There was no evidence of diverticular bleeding. Non-bleeding external and internal hemorrhoids were found during retroflexion. The hemorrhoids were medium-sized. Impression: - The examined portion of the ileum was normal. - Two 10 to 12 mm polyps in the ascending colon, removed with a cold snare. Resected and retrieved. - Three 6 to 10 mm polyps in the transverse colon, removed with a cold snare. Resected and retrieved. - Moderate diverticulosis in the sigmoid colon. There was no evidence of diverticular bleeding. - Non-bleeding external and internal hemorrhoids. Recommendation: - Patient has a contact number available for emergencies. The signs and symptoms of potential delayed complications were discussed with the patient. Return to normal activities tomorrow. Written discharge instructions were provided to the patient. - High fiber diet. - Continue present medications. - Await pathology results. - Repeat colonoscopy in 3 - 5 years for surveillance based on pathology results. - Based on the biopsy results you will receive a phone call from GI clinic in 2-3 weeks to review the pathology results AND/OR your results will be faxed to your Primary care physician. - Return to primary care physician. Joni Gomes MD Joni Gomes MD 08/22/2018 1:46:30 PM Electronically signed by Joni Gomes MD Number of Addenda: 0 Note Initiated On: 08/22/2018 1:03 PM Estimated Blood Loss: Estimated blood loss was minimal.
[2018-08-22 13:59] VITALS: BP 130/85
== END 2018-08-22 14:01 | disposition home or self-care (01) ==
LOC: M OPP 10:17
PROVIDERS: ATTEND Internal Medicine Gastroenterology
DX: K63.5 Polyp of colon (principal); K57.30 Diverticulosis of large intestine without perforation or abscess without bleeding; K64.8 Other hemorrhoids; Z12.11 Encounter for screening for malignant neoplasm of colon

== ENCOUNTER → 2018-09-06 | Outpatient (CLI) | payer MEDICARE, MEDICAID ==
--- NOTE | 2018-09-06 15:55 | REP ---
RIGHT WRIST, FOUR VIEWS: HISTORY: Wrist pain. There is no acute fracture or dislocation. The joint spaces are normal in appearance. IMPRESSION: There is no acute fracture or dislocation. Electronically Signed by Malik Tsang MD 09/06/2018 03:58 P
== END ==
LOC: M LRY 13:54
PROVIDERS: ATTEND Nurse Practitioner Family
DX: S69.91XA Unspecified injury of right wrist, hand and finger(s), initial encounter (principal); W06.XXXA Fall from bed, initial encounter; Y92.009 Unspecified place in unspecified non-institutional (private) residence as the place of occurrence of the external cause
CPT/HCPCS: 73110; G0463

== ENCOUNTER → 2018-09-28 | Outpatient (CLI) | payer MEDICARE, MEDICAID ==
[2018-09-28 06:57] LABS: BASO % 0.1 % (0.0-1.0); HEMATOCRIT 39.7 % (36.0-47.0); HEMOGLOBIN 13.7 g/dl (12.0-15.5); LYMPH # 2.7 10^3/uL (1.5-4.5); MEAN CORPUSCULAR HGB CONC 34.5 g/dl (32.0-36.5); MEAN CORPUSCULAR VOLUME 98.5 fl (80.0-96.0); MONO # 0.4 10^3/uL (0.0-0.8); MONO % 5.9 % (0.0-5.0); NEUTROPHILS # 4.3 10^3/uL (1.8-7.7); NEUTROPHILS % 57.7 % (36.0-66.0); PLATELET COUNT, AUTOMATED 187 10^3/uL (150-450); RED BLOOD COUNT 4.03 10^6/uL (4.00-5.40); WHITE BLOOD COUNT 7.5 10^3/uL (4.0-10.0)
[2018-09-28 07:11] LABS: HEMOGLOBIN A1c 5.2 %
[2018-09-28 07:28] LABS: ALBUMIN 3.9 GM/DL (3.2-5.2); ALT/SGPT 23 U/L (12-78); BILIRUBIN,TOTAL 0.2 MG/DL (0.2-1.0); BLOOD UREA NITROGEN 16 MG/DL (7-18); CALCIUM LEVEL 9.4 MG/DL (8.5-10.1); CARBAMAZEPINE (TEGRETOL) LEVEL 5.9 UG/ML (4.0-10.0); CARBON DIOXIDE LEVEL 25 MEQ/L (21-32); CHLORIDE LEVEL 108 MEQ/L (98-107); CHOLESTEROL LEVEL 153 MG/DL (<200); CHOLESTEROL RISK RATIO 3.122 (<5); CREATININE FOR GFR 0.61 MG/DL (0.55-1.30); GLOMERULAR FILTRATION RATE > 60.0 (>51); GLUCOSE, FASTING 100 MG/DL (70-100); HDL CHOLESTEROL 49 MG/DL (>40); LDL CHOLESTEROL 76 MG/DL (<100); LITHIUM LEVEL 0.54 MEQ/L (0.60-1.20); NON-HDL-C 104 MG/DL; POTASSIUM SERUM 3.9 MEQ/L (3.5-5.1); SODIUM LEVEL 140 MEQ/L (136-145); TOTAL PROTEIN 7.6 GM/DL (6.4-8.2); TRIGLYCERIDES LEVEL 140 MG/DL (<150)
== END ==
LOC: M LAB 06:17
PROVIDERS: ATTEND Physician Assistant
DX: F70 Mild intellectual disabilities (principal)

== ENCOUNTER → 2018-12-01 | Outpatient (REF) | payer MEDICARE, MEDICAID | LOC: M LAB REF 16:17 | PROVIDERS: ATTEND Nurse Practitioner Family | DX: R30.0 Dysuria (principal) ==

== ENCOUNTER → 2018-12-15 | Outpatient (REF) | payer MEDICARE, MEDICAID ==
[~2018-12-15] MED LIST changes: +META28.32 PO; +NICO2GUM52 PO; -NICO2GUM62 PO; +NON-325T5 PO; +PROAAER10 PO; -TRAZ-163 PO; +TRAZ-257 PO; -TRAZ10TA PO; +TRAZ1TAB12 PO
== END ==
LOC: M SFHCLERA 12:33
PROVIDERS: ATTEND Family Medicine
DX: R30.0 Dysuria (principal)

== ENCOUNTER → 2019-02-08 | Outpatient (REF) | payer MEDICARE, MEDICAID ==
[~2019-02-08] MED LIST changes: +TRAZ-163 PO; -TRAZ-257 PO; +TRAZ10TA PO; -TRAZ1TAB12 PO
[2019-02-08 20:35] LABS: APPEARANCE, URINE CLEAR (CLEAR); BACTERIA, URINE AUTO NEGATIVE (NEGATIVE); BILIRUBIN, URINE AUTO NEGATIVE (NEGATIVE); BLOOD, URINE BLOOD NEGATIVE (NEGATIVE); COLOR, URINE COLORLESS (YELLOW); GLUCOSE, URINE (UA) AUTO NEGATIVE (NEGATIVE); KETONE, URINE AUTO NEGATIVE (NEGATIVE); LEUKOCYTE ESTERASE, URINE AUTO TRACE (NEGATIVE); NITRITE, URINE AUTO NEGATIVE (NEGATIVE); PROTEIN, URINE AUTO NEGATIVE (NEGATIVE); RBC, URINE AUTO 0 /HPF (0-3); SPECIFIC GRAVITY URINE AUTO 1.003 (1.002-1.035); SQUAMOUS EPITHELIAL CELL UR AU 0 /HPF (0-6); UROBILINOGEN, URINE AUTO 0.2 mg/dL (0.0-2.0); WBC, URINE AUTO 3 /HPF (0-3)
== END ==
LOC: M SFHCLERA 10:37
PROVIDERS: ATTEND Family Medicine
DX: R30.0 Dysuria (principal)

== ENCOUNTER 2019-02-09 17:31 | Emergency (ER) | payer MEDICARE, MEDICAID ==
[~2019-02-09] VITALS: Ht 149.9 cm; Wt 98.1 kg
[~2019-02-09 17:31] MED LIST changes: -META28.32 PO; -NON-325T5 PO; -PROAAER10 PO
[2019-02-09] MEDS ORDERED: PROAAER10 PO (17:45)
[2019-02-09] MEDS ORDERED: CARB20TA PO (17:45)
[2019-02-09] MEDS ORDERED: META28.32 PO (17:45)
[2019-02-09] MEDS ORDERED: NON-325T5 PO (17:46)
[2019-02-09] MEDS ORDERED: GI COCKTAIL 50ML BTL(HYOSCYAMINE/MAALOX/LIDOCAINE VISCOUS)(1:3:1) PO ONE (18:15)
--- NOTE | 2019-02-09 18:34 | REP ---
Single view chest: 02/09/2019. Indication: Chest pain. Comparison: 05/17/2017. Findings: The lungs are clear. There is no pleural effusion or pneumothorax. Cardiac silhouette is at the upper limits of normal in in size. The patient is status post cholecystectomy. Impression: No acute cardiopulmonary process. Electronically Signed by Stef Kitchen DO 02/09/2019 06:24 P
[2019-02-09 18:37] LABS: BASO % 0.1 % (0.0-1.0); HEMATOCRIT 39.1 % (36.0-47.0); HEMOGLOBIN 13.5 g/dl (12.0-15.5); LYMPH % 35.2 % (24.0-44.0); MEAN CORPUSCULAR HEMOGLOBIN 33.4 pg (27.0-33.0); MEAN CORPUSCULAR HGB CONC 34.5 g/dl (32.0-36.5); MEAN CORPUSCULAR VOLUME 96.8 fl (80.0-96.0); MONO # 0.6 10^3/uL (0.0-0.8); MONO % 6.9 % (0.0-5.0); NEUTROPHILS # 4.8 10^3/uL (1.5-8.5); NEUTROPHILS % 57.4 % (36.0-66.0); PLATELET COUNT, AUTOMATED 175 10^3/uL (150-450); RED BLOOD COUNT 4.04 10^6/uL (4.00-5.40); WHITE BLOOD COUNT 8.4 10^3/uL (4.0-10.0)
[2019-02-09 18:57] LABS: BLOOD UREA NITROGEN 12 MG/DL (7-18); CALCIUM LEVEL 8.9 MG/DL (8.5-10.1); CARBON DIOXIDE LEVEL 27 MEQ/L (21-32); CHLORIDE LEVEL 107 MEQ/L (98-107); CK-MB VALUE MASS < 1.0 NG/ML (<3.6); CPK CREATINE PHOSPHOKINASE 49 U/L (26-192); CREATININE FOR GFR 0.53 MG/DL (0.55-1.30); GLOMERULAR FILTRATION RATE > 60.0 (>51); GLUCOSE, FASTING 85 MG/DL (70-100); LIPASE 199 U/L (73-393); MB/CK RELATIVE INDEX 2.04 (< OR =4); POTASSIUM SERUM 3.9 MEQ/L (3.5-5.1); SODIUM LEVEL 139 MEQ/L (136-145); TROPONIN I < 0.02 NG/ML (< 0.10)
[2019-02-09 19:13] VITALS: BP 142/83
--- NOTE | 2019-02-10 19:40 | ECGEPIP ---
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
== END 2019-02-09 19:24 | disposition home or self-care (01) ==
LOC: M ED 17:31
DX: R07.89 Other chest pain (principal); R94.31 Abnormal electrocardiogram [ECG] [EKG]; E78.5 Hyperlipidemia, unspecified; E07.9 Disorder of thyroid, unspecified; Z82.49 Family history of ischemic heart disease and other diseases of the circulatory system; Z88.0 Allergy status to penicillin; Z88.1 Allergy status to other antibiotic agents; Z88.5 Allergy status to narcotic agent; Z88.8 Allergy status to other drugs, medicaments and biological substances; J30.2 Other seasonal allergic rhinitis

== ENCOUNTER → 2019-03-30 | Outpatient (REF) | payer MEDICARE, MEDICAID ==
[~2019-03-30] MED LIST changes: +META28.32 PO; +NON-325T5 PO; +PROAAER10 PO
[2019-03-30 17:19] LABS: HEMATOCRIT 38.2 % (36.0-47.0); HEMOGLOBIN 12.8 g/dl (12.0-15.5); LYMPH # 2.5 10^3/uL (1.5-5.0); LYMPH % 34.2 % (24.0-44.0); MEAN CORPUSCULAR HEMOGLOBIN 33.2 pg (27.0-33.0); MEAN CORPUSCULAR HGB CONC 33.5 g/dl (32.0-36.5); MONO # 0.4 10^3/uL (0.0-0.8); MONO % 5.9 % (0.0-5.0); NEUTROPHILS # 4.4 10^3/uL (1.5-8.5); NEUTROPHILS % 59.6 % (36.0-66.0); PLATELET COUNT, AUTOMATED 145 10^3/uL (150-450); RED BLOOD COUNT 3.86 10^6/uL (4.00-5.40); WHITE BLOOD COUNT 7.3 10^3/uL (4.0-10.0)
[2019-03-30 17:38] LABS: ALBUMIN 3.9 GM/DL (3.2-5.2); ALT/SGPT 25 U/L (12-78); BILIRUBIN,TOTAL 0.2 MG/DL (0.2-1.0); BLOOD UREA NITROGEN 12 MG/DL (7-18); CALCIUM LEVEL 8.9 MG/DL (8.5-10.1); CARBAMAZEPINE (TEGRETOL) LEVEL 7.1 UG/ML (4.0-10.0); CARBON DIOXIDE LEVEL 28 MEQ/L (21-32); CHLORIDE LEVEL 108 MEQ/L (98-107); CREATININE FOR GFR 0.54 MG/DL (0.55-1.30); GLOMERULAR FILTRATION RATE > 60.0 (>51); GLUCOSE, FASTING 104 MG/DL (70-100); LITHIUM LEVEL 0.52 MEQ/L (0.60-1.20); POTASSIUM SERUM 3.9 MEQ/L (3.5-5.1); SODIUM LEVEL 140 MEQ/L (136-145); THYROID STIMULATING HORMONE 0.875 uIU/ML (0.358-3.740); TOTAL PROTEIN 7.5 GM/DL (6.4-8.2)
== END ==
LOC: M SFHCLERA 13:52
PROVIDERS: ATTEND Family Medicine
DX: F20.9 Schizophrenia, unspecified (principal); Z79.899 Other long term (current) drug therapy
CPT/HCPCS: 80053; 80156; 80178; 84443; 85025; G0463

== ENCOUNTER → 2019-05-09 | Outpatient (CLI) | payer MEDICARE, MEDICAID ==
[~2019-05-09] MED LIST changes: -TRAZ-163 PO; +TRAZ-257 PO; -TRAZ10TA PO; +TRAZ1TAB12 PO
--- NOTE | 2019-05-09 19:31 | REP ---
RIGHT KNEE, SIX VIEWS: Six views of the right knee are performed. No acute fracture or dislocation is seen. There is mild medial joint space narrowing and subchondral sclerosis. There is mild lateral patellofemoral compartment narrowing with subchondral sclerosis. There is no definite joint effusion. IMPRESSION: Mild degenerative changes. Electronically Signed by Mendez Pina MD 05/09/2019 07:47 P
== END ==
LOC: M WUC 18:26
PROVIDERS: ATTEND Physician Assistant
DX: M25.561 Pain in right knee (principal); M17.11 Unilateral primary osteoarthritis, right knee

== ENCOUNTER 2019-07-06 07:45 | Outpatient (RCR) | payer MEDICARE, MEDICAID ==
[~2019-07-06 07:45] MED LIST changes: -NICO2GUM52 PO; +NICO2GUM54 PO
== END 2019-07-25 ==
LOC: M PT 07:45
PROVIDERS: ATTEND Physician Assistant Medical
DX: M17.11 Unilateral primary osteoarthritis, right knee (principal)

== ENCOUNTER 2019-08-22 10:42 | Outpatient (RCR) | payer MEDICARE, MEDICAID | END 2019-08-24 | LOC: M PT 10:42 | PROVIDERS: ATTEND Physician Assistant Medical | DX: M17.11 Unilateral primary osteoarthritis, right knee (principal) ==

== ENCOUNTER 2019-08-29 14:02 | Outpatient (RCR) | payer MEDICARE, MEDICAID | END 2019-09-24 | LOC: M PT 14:02 | PROVIDERS: ATTEND Physician Assistant Medical | DX: Z47.89 Encounter for other orthopedic aftercare (principal); M17.11 Unilateral primary osteoarthritis, right knee ==

== ENCOUNTER → 2019-09-01 | Outpatient (CLI) | payer MEDICARE, MEDICAID | LOC: M LAB 08:32 | PROVIDERS: ATTEND Family Medicine | DX: F70 Mild intellectual disabilities (principal) ==

== ENCOUNTER → 2019-09-01 | Outpatient (CLI) | payer MEDICARE, MEDICAID ==
[2019-09-01 09:25] LABS: HEMATOCRIT 39.6 % (36.0-47.0); HEMOGLOBIN 13.4 g/dl (12.0-15.5); LYMPH # 2.3 10^3/uL (1.5-5.0); LYMPH % 32.9 % (24.0-44.0); MEAN CORPUSCULAR HEMOGLOBIN 32.9 pg (27.0-33.0); MEAN CORPUSCULAR HGB CONC 33.8 g/dl (32.0-36.5); MEAN CORPUSCULAR VOLUME 97.3 fl (80.0-96.0); MONO # 0.4 10^3/uL (0.0-0.8); MONO % 5.8 % (0.0-5.0); NEUTROPHILS # 4.2 10^3/uL (1.5-8.5); NEUTROPHILS % 60.9 % (36.0-66.0); PLATELET COUNT, AUTOMATED 158 10^3/uL (150-450); RED BLOOD COUNT 4.07 10^6/uL (4.00-5.40); WHITE BLOOD COUNT 6.9 10^3/uL (4.0-10.0)
[2019-09-01 09:57] LABS: HEMOGLOBIN A1c 5.2 %
[2019-09-01 10:02] LABS: ALBUMIN 3.6 GM/DL (3.2-5.2); ALT/SGPT 23 U/L (12-78); BILIRUBIN,TOTAL 0.2 MG/DL (0.2-1.0); BLOOD UREA NITROGEN 14 MG/DL (7-18); CALCIUM LEVEL 9.1 MG/DL (8.5-10.1); CARBAMAZEPINE (TEGRETOL) LEVEL 6.3 UG/ML (4.0-10.0); CARBON DIOXIDE LEVEL 26 MEQ/L (21-32); CHLORIDE LEVEL 109 MEQ/L (98-107); CHOLESTEROL LEVEL 150 MG/DL (<200); CREATININE FOR GFR 0.54 MG/DL (0.55-1.30); GLOMERULAR FILTRATION RATE > 60.0 (>51); GLUCOSE, FASTING 100 MG/DL (70-100); HDL CHOLESTEROL 46 MG/DL (>40); LDL CHOLESTEROL 74 MG/DL (<100); LITHIUM LEVEL 0.39 MEQ/L (0.60-1.20); NON-HDL-C 104 MG/DL; POTASSIUM SERUM 4.2 MEQ/L (3.5-5.1); SODIUM LEVEL 140 MEQ/L (136-145); THYROID STIMULATING HORMONE 0.455 uIU/ML (0.358-3.740); TOTAL PROTEIN 7.3 GM/DL (6.4-8.2); TRIGLYCERIDES LEVEL 150 MG/DL (<150)
== END ==
LOC: M LAB 08:26
PROVIDERS: ATTEND Physician Assistant
DX: F70 Mild intellectual disabilities (principal); Z79.899 Other long term (current) drug therapy

== ENCOUNTER → 2019-09-22 | Outpatient (CLI) | payer MEDICARE, MEDICAID ==
--- NOTE | 2019-09-22 12:11 | REPMRS ---
Patient History The patient states she had a clinical breast exam in August 2019.No known family history of cancer. Took hormonal contraceptives for 25 years. Digital Woman Screen Mammo: September 22, 2019 - Exam #: [id number] Bilateral CC and MLO view(s) were taken. Technologist: Kisha Olsen, Technologist Prior study comparison: March 30, 2018, bilateral digital mammo screening bilat, performed at [facility]. March 12, 2017, bilateral digital mammo screening bilat, performed at [facility]. February 18, 2016, digital woman screen mammo performed at [facility]. FINDINGS: The breast tissue is almost entirely fat. The Volpara volumetric breast density category is: A. There has been no change in the appearance of the mammogram from the prior studies. There is no interval development of dominant mass, architectural distortion, or grouped microcalcification typical of malignancy. 3-D tomosynthesis shows no additional findings. Assessment: BI-RADS/ACR category 1 mammogram. Negative Mammogram. Recommendation Routine screening mammogram of both breasts in 1 year (for women over age 40). This patient's Lifetime Breast Cancer RIsk is estimated at 11.0 %. This mammogram was interpreted with the aid of an FDA-approved computer-aided dectection system. Electronically Signed By: Juan Romeo MD 09/22/19 [id number]
== END ==
LOC: M WHC 10:45
PROVIDERS: ATTEND Family Medicine
DX: Z12.31 Encounter for screening mammogram for malignant neoplasm of breast (principal)

== ENCOUNTER 2019-10-07 10:19 | Emergency (ER) | payer MEDICARE, MEDICAID ==
[~2019-10-07] VITALS: Ht 154.9 cm; Wt 95.5 kg
[2019-10-07] MEDS ORDERED: MYRB25TA PO (10:43)
[2019-10-07] MEDS ORDERED: VITAD1000T PO (10:43)
[2019-10-07 10:46] LABS: HEMATOCRIT 41.2 % (36.0-47.0); HEMOGLOBIN 14.1 g/dl (12.0-15.5); LYMPH # 2.1 10^3/uL (1.5-5.0); MEAN CORPUSCULAR HEMOGLOBIN 32.7 pg (27.0-33.0); MEAN CORPUSCULAR HGB CONC 34.2 g/dl (32.0-36.5); MEAN CORPUSCULAR VOLUME 95.6 fl (80.0-96.0); MONO # 0.3 10^3/uL (0.0-0.8); MONO % 5.1 % (0.0-5.0); NEUTROPHILS # 4.2 10^3/uL (1.5-8.5); NEUTROPHILS % 62.7 % (36.0-66.0); PLATELET COUNT, AUTOMATED 155 10^3/uL (150-450); RED BLOOD COUNT 4.31 10^6/uL (4.00-5.40); WHITE BLOOD COUNT 6.6 10^3/uL (4.0-10.0)
[2019-10-07 11:15] LABS: BLOOD UREA NITROGEN 12 MG/DL (7-18); CALCIUM LEVEL 9.7 MG/DL (8.5-10.1); CARBON DIOXIDE LEVEL 29 MEQ/L (21-32); CHLORIDE LEVEL 106 MEQ/L (98-107); CK-MB VALUE MASS < 1.0 NG/ML (<3.6); CPK CREATINE PHOSPHOKINASE 48 U/L (26-192); CREATININE FOR GFR 0.58 MG/DL (0.55-1.30); GLOMERULAR FILTRATION RATE > 60.0 (>51); GLUCOSE, FASTING 116 MG/DL (70-100); MB/CK RELATIVE INDEX 2.08 (< OR =4); SODIUM LEVEL 139 MEQ/L (136-145); TROPONIN I < 0.02 NG/ML (< 0.10)
--- NOTE | 2019-10-07 11:29 | REP ---
Single view chest: 10/07/2019. Indication: Chest pain. Comparison: May 17, 2018. Findings: The lungs are clear. There is no pleural effusion or pneumothorax. Cardiac silhouette is not enlarged. Impression: Clear lungs. Electronically Signed by Stef Kitchen DO 10/07/2019 11:20 A
[2019-10-07] MEDS ORDERED: GI COCKTAIL 50ML BTL(HYOSCYAMINE/MAALOX/LIDOCAINE VISCOUS)(1:3:1) PO ONE (12:15)
[2019-10-07] MEDS ORDERED: ISOVUE-370 76% 100ML VIAL As Ordered ONE (12:38)
--- NOTE | 2019-10-07 13:07 | REP ---
CT chest: 10/07/2019. Indication: Chest pain. Technique: Axial images of the chest were obtained following IV iodinated contrast administration with coronal and sagittal reconstructions provided. Comparison: None. Findings: There is no evidence of pulmonary embolism. Nonspecific ground-glass opacities are present bilaterally. There is no significant pleural effusion. No pneumothorax is present. The patient is status post cholecystectomy. The mediastinal anatomy is unremarkable. The visualized upper abdominal anatomy is also unremarkable. Impression: No pulmonary embolism. No significant pulmonary airspace consolidation. Electronically Signed by Stef Kitchen DO 10/07/2019 12:59 P
[2019-10-07 13:54] LABS: CK-MB VALUE MASS < 1.0 NG/ML (<3.6); CPK CREATINE PHOSPHOKINASE 41 U/L (26-192); MB/CK RELATIVE INDEX 2.44 (< OR =4); TROPONIN I < 0.02 NG/ML (< 0.10)
[2019-10-07 14:00] VITALS: BP 120/75
[2019-10-07] MEDS ORDERED: PRIL20TA2 PO (14:06)
--- NOTE | 2019-10-08 16:01 | ECGEPIP ---
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
--- NOTE | 2019-10-08 16:04 | ECGEPIP ---
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
== END 2019-10-07 14:11 | disposition home or self-care (01) ==
LOC: EDBD 10:19 → M ED 10:19
DX: R00.1 Bradycardia, unspecified (principal); I44.0 Atrioventricular block, first degree; K21.0 Gastro-esophageal reflux disease with esophagitis; R07.89 Other chest pain; E78.5 Hyperlipidemia, unspecified; E03.9 Hypothyroidism, unspecified; R56.9 Unspecified convulsions; F71 Moderate intellectual disabilities; J30.2 Other seasonal allergic rhinitis; F17.200 Nicotine dependence, unspecified, uncomplicated; Z79.899 Other long term (current) drug therapy; Z88.0 Allergy status to penicillin; Z88.5 Allergy status to narcotic agent; Z88.8 Allergy status to other drugs, medicaments and biological substances
CPT/HCPCS: 36415; 71045; 71275; 80048; 82550; 82553; 84484; 85025; 93005; 93041; 94760; 99285; Q9967

== ENCOUNTER → 2019-12-05 | Outpatient (REF) | payer MEDICARE, MEDICAID ==
[~2019-12-05] MED LIST changes: +D31000TA2 PO; +MYRB25TA PO; +NICO-13 PO; -NICO2GUM54 PO; -PANT20TA2 PO; +PANT20TA6 PO; +PRIL20TA2 PO
[2020-01-04 19:58] LABS: APPEARANCE, URINE HAZY (CLEAR); BACTERIA, URINE AUTO 1+ (NEGATIVE); BILIRUBIN, URINE AUTO NEGATIVE (NEGATIVE); BLOOD, URINE BLOOD NEGATIVE (NEGATIVE); COLOR, URINE YELLOW (YELLOW); GLUCOSE, URINE (UA) AUTO NEGATIVE (NEGATIVE); KETONE, URINE AUTO NEGATIVE (NEGATIVE); LEUKOCYTE ESTERASE, URINE AUTO 1+ (NEGATIVE); NITRITE, URINE AUTO NEGATIVE (NEGATIVE); PROTEIN, URINE AUTO NEGATIVE (NEGATIVE); RBC, URINE AUTO 3 /HPF (0-3); SPECIFIC GRAVITY URINE AUTO 1.013 (1.002-1.035); SQUAMOUS EPITHELIAL CELL UR AU 0 /HPF (0-6); UROBILINOGEN, URINE AUTO 0.2 mg/dL (0.0-2.0); WBC, URINE AUTO 13 /HPF (0-3)
== END ==
LOC: M SFHCLERA 09:21
PROVIDERS: ATTEND Family Medicine
DX: R39.15 Urgency of urination (principal)
CPT/HCPCS: 81001; 81002; 87088; 87186; G0463

== ENCOUNTER → 2020-01-31 | Outpatient (CLI) | payer MEDICARE, MEDICAID ==
[2020-01-31 14:12] LABS: AMORPHOUS SEDIMENT SMALL (NEGATIVE); APPEARANCE, URINE HAZY (CLEAR); BACTERIA, URINE AUTO 1+ (NEGATIVE); BILIRUBIN, URINE AUTO NEGATIVE (NEGATIVE); BLOOD, URINE BLOOD NEGATIVE (NEGATIVE); COLOR, URINE YELLOW (YELLOW); GLUCOSE, URINE (UA) AUTO NEGATIVE (NEGATIVE); KETONE, URINE AUTO NEGATIVE (NEGATIVE); LEUKOCYTE ESTERASE, URINE AUTO 2+ (NEGATIVE); NITRITE, URINE AUTO NEGATIVE (NEGATIVE); PROTEIN, URINE AUTO NEGATIVE (NEGATIVE); RBC, URINE AUTO 2 /HPF (0-3); SPECIFIC GRAVITY URINE AUTO 1.015 (1.002-1.035); SQUAMOUS EPITHELIAL CELL UR AU 1 /HPF (0-6); UROBILINOGEN, URINE AUTO 0.2 mg/dL (0.0-2.0); WBC, URINE AUTO 66 /HPF (0-3)
== END ==
LOC: M WUC 11:03
PROVIDERS: ATTEND Family Medicine
DX: R30.0 Dysuria (principal)

== ENCOUNTER → 2020-02-02 | Outpatient (REF) | payer MEDICARE, MEDICAID | LOC: M WUC 19:52 | PROVIDERS: ATTEND Nurse Practitioner Family | DX: N39.0 Urinary tract infection, site not specified (principal) ==

== ENCOUNTER 2020-02-19 12:35 | Emergency (ER) | payer MEDICARE, MEDICAID ==
[~2020-02-19] VITALS: Ht 160 cm; Wt 87.7 kg
[~2020-02-19 12:35] MED LIST changes: +ACET-838 PO; -NON-325T5 PO
[2020-02-19] MEDS ORDERED: ALBUTEROL 90 MCG/ACT 8GM HFA INHALER INH ONE (13:00)
[2020-02-19] MEDS ORDERED: COMBIVENT RESPIMAT 100-20MCG INHALER 4GM INH ONE (13:00)
--- NOTE | 2020-02-19 13:11 | REP ---
INDICATION: DYSPNEA/COUGH. COMPARISON: 10/07/2019. TECHNIQUE: SINGLE PORTABLE AP VIEW OF THE CHEST WAS PERFORMED. FINDINGS: THERE IS NO ACUTE INFILTRATE OR PULMONARY EDEMA. LUNGS ARE CLEAR. HEART IS NOT SIGNIFICANTLY ENLARGED. MEDIASTINAL SILHOUETTE IS UNREMARKABLE. THE VISUALIZED OSSEOUS STRUCTURES ARE INTACT. IMPRESSION: NO ACUTE PULMONARY DISEASE. <Electronically signed by Mendez Pina > 02/19/20 0495
[2020-02-19 13:16] LABS: BASO % 0.1 % (0.0-1.0); HEMATOCRIT 39.4 % (36.0-47.0); HEMOGLOBIN 13.1 g/dl (12.0-15.5); LYMPH % 28.4 % (24.0-44.0); MEAN CORPUSCULAR HGB CONC 33.2 g/dl (32.0-36.5); MEAN CORPUSCULAR VOLUME 96.3 fl (80.0-96.0); MONO # 0.5 10^3/uL (0.0-0.8); MONO % 7.3 % (0.0-5.0); NEUTROPHILS # 4.4 10^3/uL (1.5-8.5); NEUTROPHILS % 63.9 % (36.0-66.0); PLATELET COUNT, AUTOMATED 173 10^3/uL (150-450); RED BLOOD COUNT 4.09 10^6/uL (4.00-5.40); WHITE BLOOD COUNT 6.9 10^3/uL (4.0-10.0)
[2020-02-19 13:52] LABS: ALBUMIN 3.8 GM/DL (3.2-5.2); ALT/SGPT 13 U/L (12-78); BILIRUBIN,DIRECT 0.1 MG/DL (0.0-0.2); BILIRUBIN,TOTAL 0.3 MG/DL (0.2-1.0); BLOOD UREA NITROGEN 9 MG/DL (7-18); CALCIUM LEVEL 9.4 MG/DL (8.5-10.1); CARBON DIOXIDE LEVEL 28 MEQ/L (21-32); CHLORIDE LEVEL 107 MEQ/L (98-107); CK-MB VALUE MASS < 1.0 NG/ML (<3.6); CPK CREATINE PHOSPHOKINASE 35 U/L (26-192); CREATININE FOR GFR 0.53 MG/DL (0.55-1.30); GLOMERULAR FILTRATION RATE > 60.0 (>51); GLUCOSE, FASTING 93 MG/DL (70-100); LIPASE 132 U/L (73-393); MB/CK RELATIVE INDEX 2.86 (< OR =4); SODIUM LEVEL 138 MEQ/L (136-145); THYROXINE (T4) 6.9 UG/DL (4.5-12.0); TOTAL PROTEIN 7.6 GM/DL (6.4-8.2); TROPONIN I < 0.02 NG/ML (< 0.10)
[2020-02-19 15:27] LABS: ABG BASE EXCESS -0.9 (-2.0-2.0); ABG HCO3 24.1 MEQ/L (22.0-26.0); ABG O2 SATURATION 93.8 % (95.0-99.0); ABG PARTIAL PRESSURE CO2 41.1 mmHg (35.0-45.0); ABG STANDARD HCO3 23.7 MEQ/L (22.0-26.0); ABG TOTAL CO2 25.4 MEQ/L (22.0-29.0); ABG pH (ARTERIAL) 7.386 UNITS (7.350-7.450)
[2020-02-19 16:30] VITALS: BP 135/77
--- NOTE | 2020-02-20 09:24 | ECGEPIP ---
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
== END 2020-02-19 16:42 | disposition home or self-care (01) ==
LOC: M ED 12:35 → EDBD 12:35 → M ED 16:42
DX: R06.02 Shortness of breath (principal); F71 Moderate intellectual disabilities; Z79.899 Other long term (current) drug therapy; J30.89 Other allergic rhinitis; Z88.0 Allergy status to penicillin; Z88.1 Allergy status to other antibiotic agents; Z88.5 Allergy status to narcotic agent; Z88.8 Allergy status to other drugs, medicaments and biological substances
CPT/HCPCS: 36600; 71045; 80048; 80076; 80178; 82550; 82553; 82803; 83605; 83690; 84436; 84443; 84484; 85025; 87040; 87486; 87581; 87633; 87798; 93005; 93041; 94640; 99285; G0463

== ENCOUNTER → 2020-06-20 | Outpatient (CLI) | payer MEDICARE, MEDICAID ==
[2020-06-20 16:36] LABS: HEMATOCRIT 39.6 % (36.0-47.0); LYMPH # 2.7 10^3/uL (1.5-5.0); MEAN CORPUSCULAR HEMOGLOBIN 32.6 pg (27.0-33.0); MEAN CORPUSCULAR HGB CONC 32.8 g/dl (32.0-36.5); MEAN CORPUSCULAR VOLUME 99.2 fl (80.0-96.0); MONO # 0.4 10^3/uL (0.0-0.8); MONO % 5.9 % (2.0-8.0); NEUTROPHILS # 3.4 10^3/uL (1.5-8.5); NEUTROPHILS % 52.9 % (36.0-66.0); PLATELET COUNT, AUTOMATED 164 10^3/uL (150-450); RED BLOOD COUNT 3.99 10^6/uL (4.00-5.40); WHITE BLOOD COUNT 6.5 10^3/uL (4.0-10.0)
[2020-06-20 16:53] LABS: HEMOGLOBIN A1c 4.9 %
[2020-06-20 17:06] LABS: ALT/SGPT 25 U/L (12-78); BILIRUBIN,TOTAL 0.2 MG/DL (0.2-1.0); BLOOD UREA NITROGEN 10 MG/DL (7-18); CALCIUM LEVEL 9.1 MG/DL (8.5-10.1); CARBON DIOXIDE LEVEL 27 MEQ/L (21-32); CHLORIDE LEVEL 109 MEQ/L (98-107); CHOLESTEROL LEVEL 149 MG/DL (<200); CHOLESTEROL RISK RATIO 2.921 (<5); CREATININE FOR GFR 0.56 MG/DL (0.55-1.30); GLOMERULAR FILTRATION RATE > 60.0 (>51); GLUCOSE, FASTING 92 MG/DL (70-100); HDL CHOLESTEROL 51 MG/DL (>40); LDL CHOLESTEROL 72 MG/DL (<100); LITHIUM LEVEL 0.77 MEQ/L (0.60-1.20); NON-HDL-C 98 MG/DL; POTASSIUM SERUM 4.2 MEQ/L (3.5-5.1); PROLACTIN 1.8 NG/ML; SODIUM LEVEL 142 MEQ/L (136-145); TOTAL PROTEIN 7.3 GM/DL (6.4-8.2); TRIGLYCERIDES LEVEL 129 MG/DL (<150)
== END ==
LOC: M WUC 11:15
PROVIDERS: ATTEND Physician Assistant
DX: Z51.81 Encounter for therapeutic drug level monitoring (principal); Z79.899 Other long term (current) drug therapy

== ENCOUNTER → 2020-07-23 | Outpatient (CLI) | payer MEDICARE, MEDICAID ==
[2020-07-23 11:21] LABS: BASO % 0.1 % (0.0-1.0); HEMATOCRIT 39.6 % (36.0-47.0); HEMOGLOBIN 13.4 g/dl (12.0-15.5); LYMPH # 2.4 10^3/uL (1.5-5.0); LYMPH % 32.8 % (24.0-44.0); MEAN CORPUSCULAR HEMOGLOBIN 32.8 pg (27.0-33.0); MEAN CORPUSCULAR HGB CONC 33.8 g/dl (32.0-36.5); MEAN CORPUSCULAR VOLUME 97.1 fl (80.0-96.0); MONO # 0.4 10^3/uL (0.0-0.8); MONO % 5.5 % (2.0-8.0); NEUTROPHILS # 4.4 10^3/uL (1.5-8.5); NEUTROPHILS % 61.3 % (36.0-66.0); PLATELET COUNT, AUTOMATED 160 10^3/uL (150-450); RED BLOOD COUNT 4.08 10^6/uL (4.00-5.40); WHITE BLOOD COUNT 7.3 10^3/uL (4.0-10.0)
[2020-07-23 11:43] LABS: HEMOGLOBIN A1c 4.9 %
[2020-07-23 12:07] LABS: ALBUMIN 4.1 GM/DL (3.2-5.2); ALT/SGPT 17 U/L (12-78); BILIRUBIN,TOTAL 0.3 MG/DL (0.2-1.0); BLOOD UREA NITROGEN 16 MG/DL (7-18); CALCIUM LEVEL 9.1 MG/DL (8.5-10.1); CARBAMAZEPINE (TEGRETOL) LEVEL 5.6 UG/ML (4.0-10.0); CARBON DIOXIDE LEVEL 28 MEQ/L (21-32); CHLORIDE LEVEL 106 MEQ/L (98-107); CHOLESTEROL LEVEL 169 MG/DL (<200); CREATININE FOR GFR 0.58 MG/DL (0.55-1.30); GLOMERULAR FILTRATION RATE > 60.0 (>51); GLUCOSE, FASTING 87 MG/DL (70-100); HDL CHOLESTEROL 52 MG/DL (>40); LDL CHOLESTEROL 97 MG/DL (<100); LITHIUM LEVEL 0.57 MEQ/L (0.60-1.20); NON-HDL-C 117 MG/DL; POTASSIUM SERUM 4.1 MEQ/L (3.5-5.1); SODIUM LEVEL 138 MEQ/L (136-145); TOTAL PROTEIN 7.5 GM/DL (6.4-8.2); TRIGLYCERIDES LEVEL 99 MG/DL (<150)
== END ==
LOC: M WUC 08:19
PROVIDERS: ATTEND Family Medicine
DX: F20.9 Schizophrenia, unspecified (principal); E03.9 Hypothyroidism, unspecified; Z79.899 Other long term (current) drug therapy

== ENCOUNTER → 2020-09-10 | Outpatient (CLI) | payer MEDICARE, MEDICAID ==
[~2020-09-10] MED LIST changes: -ACET-838 PO; +ACET32TAB PO
--- NOTE | 2020-09-10 15:37 | REP ---
INDICATION: POSTMENOPAUSAL BLEEDING. COMPARISON: None TECHNIQUE: Transvesical and transvaginal imaging FINDINGS: The uterus measures 5.6 x 2.8 x 3.5 cm. In the posterior uterine parenchyma there is a hypoechoic 1.6 cm sized nodule. The endometrial echo complex measures 2 mm in its greatest thickness and is within normal limits. The right ovary was not visualized transvesical air transvaginally. Left ovary was not seen transvesical air transvaginally either. Urinary bladder measures 13 x 10 x 7 cm IMPRESSION: 1. Probable uterine myomatous changes as described above. 2. The exam is limited by nonvisualization of either ovary. Consider follow-up with pre and post gadolinium enhanced pelvic MRI. <Electronically signed by Alec Scott > 09/10/20 0468
== END ==
LOC: M RAD 14:55
PROVIDERS: ATTEND Physician Assistant Medical
DX: N95.0 Postmenopausal bleeding (principal)

== ENCOUNTER → 2020-09-26 | Outpatient (CLI) | payer MEDICARE, MEDICAID ==
--- NOTE | 2020-09-26 11:21 | REP ---
INDICATION: Z12.31 SCREENING MAMMO. COMPARISON: Multiple TECHNIQUE: Digital screening mammography was carried out bilaterally in the CC and MLO projections using both 2D and 3D modalities and compared to the prior exams. By history, the patient has no complaints of a palpable breast abnormality or other significant breast complaints. FINDINGS: The breasts are unchanged in size and shape. In the upper outer quadrant of the left breast there is a potential tiny asymmetric whit density. No other suspicious features are seen in either breast. There are no suspicious calcifications. There is no skin thickening or nipple retraction. The Volpara volumetric breast density pattern is a. IMPRESSION: BIRADS/ACR category 0 mammogram. Diagnostic digital magnified spot compression views of the left breast over the region of interest recommended along with ultrasonography if indicated. This patient's Tyrer-Cuzick lifetime breast cancer risk assessment score is 10.8 %. This mammogram was interpreted with the aid of an FDA-approved computer-aided detection system. The patient states she had a clinical breast exam in August of 2020. The patient letter being requested is M0. RECOMMENDATION: As above). <Electronically signed by Alec Scott > 09/26/20 [id number]
== END ==
LOC: M WHC 10:24
PROVIDERS: ATTEND Family Medicine
DX: Z12.31 Encounter for screening mammogram for malignant neoplasm of breast (principal); R92.8 Other abnormal and inconclusive findings on diagnostic imaging of breast

== ENCOUNTER → 2020-10-31 | Outpatient (CLI) | payer MEDICARE, MEDICAID ==
--- NOTE | 2020-10-31 10:51 | REP ---
INDICATION: ADDITIONAL VIEWS LT BREAST. Screening mammography from September 26, 2020 was BI-RADS category 0 for a tiny whit density. Diagnostic imaging was recommended. COMPARISON: Comparison mammography September 26, 2020, September 22, 2019, and March 30, 2018. TECHNIQUE: Magnified focal spot-compression CC, mL, and MLO views of the left breast are obtained. A true mediolateral view with 3D tomography is performed. Targeted left breast sonography is carried out. This mammogram was interpreted with the aid of an FDA-approved computer-aided detection system. FINDINGS: Breast parenchyma is predominantly fat replaced. There is a relatively low-density incompletely circumscribed nodule in the upper outer quadrant of the left breast which is felt to correspond with the nodular density seen on screening mammography. This is seen on true mediolateral and CC views today but not confidently identified on the MLO Mag spot period it is visible in the lateral and superior breast on the mL 3D tomography. No other significant finding is seen on today's mammographic images.. The Volpara volumetric breast density pattern is a.. Targeted ultrasound: Targeted left breast sonography is performed. Heterogeneous fibroglandular background echotexture is seen. No cyst or mass is observed. No sonographic correlate to the mammographic opacity. IMPRESSION: BIRADS/ACR category 4 suspicious left breast mammographic small 5 mm nodule persists upper-outer quadrant left breast. No sonographic correlate.. This patient's Tyrer-Cuzick lifetime breast cancer risk assessment score is 10.8%. RECOMMENDATION: Stereotactic needle biopsy left breast with marker clip placement and post clip placement mammography recommended.. The patient letter being requested is M4. <Electronically signed by Juan Romeo > 10/31/20 2431
== END ==
LOC: M WHC 09:00
PROVIDERS: ATTEND Family Medicine
DX: N63.21 Unspecified lump in the left breast, upper outer quadrant (principal)

== ENCOUNTER → 2020-11-05 | Outpatient (CLI) | payer MEDICARE, MEDICAID ==
--- NOTE | 2020-11-05 14:21 | REP ---
INDICATION: FEVER. COMPARISON: Multiple latest 02/19/2020 a portable exam TECHNIQUE: PA and lateral FINDINGS: The superior mediastinal structures are midline. The cardiac silhouette is unremarkable in size, shape, and position. The diaphragmatic surfaces of the lungs are regular, and the costophrenic angles are clear. The pulmonary robles are clear. The imaged osseous structures are intact. IMPRESSION: There is no acute cardiopulmonary disease. <Electronically signed by Alec Scott > 11/05/20 0598
== END ==
LOC: M WUC 13:19
PROVIDERS: ATTEND Nurse Practitioner Family
DX: R50.9 Fever, unspecified (principal)
CPT/HCPCS: 71046; 87426; 87804; G0463; U0003

== ENCOUNTER → 2020-11-05 | Outpatient (REF) | payer MEDICARE, MEDICAID | LOC: M SFHCLERA 15:52 | PROVIDERS: ATTEND Nurse Practitioner Family | DX: R50.9 Fever, unspecified (principal) ==

== ENCOUNTER → 2020-12-25 | Outpatient (REF) | payer MEDICARE, MEDICAID ==
[2020-12-25 13:46] LABS: APPEARANCE, URINE CLEAR (CLEAR); BACTERIA, URINE AUTO NEGATIVE (NEGATIVE); BILIRUBIN, URINE AUTO NEGATIVE (NEGATIVE); BLOOD, URINE BLOOD NEGATIVE (NEGATIVE); COLOR, URINE STRAW (YELLOW); GLUCOSE, URINE (UA) AUTO NEGATIVE (NEGATIVE); KETONE, URINE AUTO NEGATIVE (NEGATIVE); LEUKOCYTE ESTERASE, URINE AUTO 1+ (NEGATIVE); NITRITE, URINE AUTO NEGATIVE (NEGATIVE); PROTEIN, URINE AUTO NEGATIVE (NEGATIVE); RBC, URINE AUTO 1 /HPF (0-3); SPECIFIC GRAVITY URINE AUTO 1.003 (1.002-1.035); SQUAMOUS EPITHELIAL CELL UR AU 0 /HPF (0-6); UROBILINOGEN, URINE AUTO 0.2 mg/dL (0.0-2.0); WBC, URINE AUTO 8 /HPF (0-3)
== END ==
LOC: M SFHCWAGY 12:53
PROVIDERS: ATTEND Obstetrics & Gynecology
DX: R30.0 Dysuria (principal)
CPT/HCPCS: 81001; 87088; 87186; G0463

== ENCOUNTER → 2021-02-04 | Outpatient (POV) | payer MEDICARE, MEDICAID ==
[~2021-02-04] VITALS: Ht 152.4 cm; Wt 80.9 kg
[2021-02-04 09:45] VITALS: BP 132/75
--- NOTE | 2021-02-06 13:25 | IRCOV ---
[facility] IR Consult Office Visit IR Consult Office Visit DATE: Feb 04, 2021 REASON FOR CONSULTATION/CHIEF COMPLAINT: Varicose veins. HISTORY OF PRESENT ILLNESS: 55-year-old female with right greater than left leg bulging varicose veins, associated with pain and leg heaviness and leg swelling. Patient has had prior left greater saphenous vein ablation with Dr. Peter in 2017. She is not sure if this made any difference to the symptoms in her left leg. However, today she complains that her right leg for many months, has been feeling heavy and aching. Patient denies intermittent claudication or rest pain with elevation. She does use compression therapy. She denies any prior deep vein thrombosis. She denies any prior right lower extremity venous intervention. ALLERGIES: Please see below. HOME MEDICATIONS: Please see below. PAST MEDICAL HISTORY: Hyperlipidemia Hypothyroidism Venous insufficiency Vitamin D deficiency Seizure disorder Mental retardation PAST SURGICAL HISTORY: Cholecystectomy Cleft palate repair FAMILY HISTORY: Noncontributory. SOCIAL HISTORY: Non-smoker. Denies alcohol or drugs. REVIEW OF SYSTEMS: Otherwise negative. PHYSICAL EXAMINATION: VITAL SIGNS: Please see below. GENERAL APPEARANCE: Appears well. Comfortable at rest. Able to converse and describe her symptoms. HEENT: No scleral icterus. RESPIRATORY: Bilateral rhonchi. No respiratory distress. CARDIOVASCULAR: Normal rate. ABDOMEN: Protuberant EXTREMITIES: Left lower extremity: [place] in color. Warm to touch. Spider veins along the GSV territory and posterior to the calf. No hemosiderin deposition. No lipodermatosclerosis. DP/PT 1+. Calf soft nontender. Motor 3 out of 5. Sensation 4 out of 5. Right lower extremity: [place] in color. Warm to touch. Spider veins along the GSV territory and posterior to the calf. Bulging varicose veins along the GSV territory. No hemosiderin deposition. No lipodermatosclerosis. DP/PT 1+. Calf soft nontender. Motor 3 out of 5. Sensation 4 out of 5. NEUROLOGICAL: Alert and oriented. PSYCHIATRIC: Appropriate to circumstance. LABORATORY DATA: None recent. Imaging: No recent venous reflux ultrasound. ASSESSMENT/PLAN: 55-year-old female with history of varicose veins, with right worse than left lower extremity swelling, aching and leg heaviness, associated with bulging varicose veins. I will order bilateral lower extremity standing venous reflux ultrasound study to evaluate for saphenous vein reflux. If she does have saphenous vein reflux, she would be a candidate for EVLT therapy. I spent 30 minutes reviewing patient's records and in consultation with the patient. Thank you for this referral. CC Dr. Malik Barrett Allergies Coded Allergies: Cephalosporins (Verified Allergy, Intermediate, HIVES, 08/22/18) Penicillins (Verified Allergy, Intermediate, HIVES, 08/16/18) lurasidone (Verified Allergy, Intermediate, MANIC, HALLUCINATIONS, 08/16/18) oxycodone (Verified Allergy, Intermediate, HIVES, 08/16/18) SEASONAL ALLERGIES (Verified Allergy, Unknown, 10/16/09) Home Medications Scheduled Aripiprazole (Abilify), 15 MG PO BID, (Reported) Carbamazepine (Carbamazepine), 2 TAB PO BID, (Reported) Cholecalciferol (Vitamin D3) (Vitamin D3), 2,000 UNIT PO DAILY, (Reported) Cholecalciferol (Vitamin D3) (Vitamin D3), 2,000 UNITS PO DAILY, (Reported) Docusate Sodium (Colace Clear), 50 MG PO DAILY, (Reported) Ferrous Sulfate (Ferrous Sulfate), 325 MG PO BID, (Reported) Gemfibrozil (Gemfibrozil), 600 MG PO BID, (Reported) Levothyroxine Sodium (Levothyroxine Sodium), 125 MCG PO QAM, (Reported) Max Carbonate (Max Carbonate), 300 MG PO BID, (Reported) Loratadine (Loratadine), 10 MG PO DAILY, (Reported) Mirabegron (Myrbetriq), 1 TAB PO DAILY, (Reported) Multivitamins (Thera M Plus Tablet), 1 TAB PO DAILY, (Reported) Olanzapine (Zyprexa), 10 MG PO QHS, (Reported) Omeprazole Magnesium (Prilosec Otc), 1 TAB PO DAILY Prazosin HCl (Minipress), 2 MG PO DAILY, (Reported) Zolpidem Tartrate (Ambien), 10 MG PO QHS, (Reported) Scheduled PRN (Saline Nasal [place]), 0.65 % NA PRN PRN for CONGESTION, (Reported) Acetaminophen (Acetaminophen), 2 TAB PO Q4-6HP PRN for pain or fever, (Reported) Albuterol Sulfate (Proair Hfa), 2 PUFF PO for SOB/COUGH, (Reported) Ammonium Lactate (Ammonium Lactate), 12 % TOP DAILY PRN for DRY SKIN, (Reported) VS, I&O, 24H, Fishbone Vital Signs/I&O Vital Signs Date Time Temp Pulse Resp B/P (MAP) Pulse Ox O2 Delivery O2 Flow Rate FiO2 02/04/21 09:45 96.6 66 20 132/75 (94) 93 Room Air BRONSON AZAR MD Feb 06, 2021 13:25
== END ==
LOC: M IRPOV 09:37
PROVIDERS: ATTEND Radiology Diagnostic Radiology
DX: I83.813 Varicose veins of bilateral lower extremities with pain (principal); E03.9 Hypothyroidism, unspecified; E78.5 Hyperlipidemia, unspecified; F79 Unspecified intellectual disabilities; I87.2 Venous insufficiency (chronic) (peripheral); J30.2 Other seasonal allergic rhinitis; G40.909 Epilepsy, unspecified, not intractable, without status epilepticus; Z88.0 Allergy status to penicillin; Z88.1 Allergy status to other antibiotic agents; Z88.5 Allergy status to narcotic agent; Z88.8 Allergy status to other drugs, medicaments and biological substances; Z79.890 Hormone replacement therapy

== ENCOUNTER → 2021-02-13 | Outpatient (CLI) | payer MEDICARE, MEDICAID ==
--- NOTE | 2021-02-13 13:53 | REP ---
INDICATION: VARICOSE VEINS. COMPARISON: None. TECHNIQUE: Multiple ultrasonographic images of the deep venous structures of the bilateral lower extremity were obtained from the inguinal ligament to the ankle. Venous compression techniques, color doppler imaging, and augmentation techniques were also obtained where appropriate. As per the ACR guidelines the anterior tibial vein can not be effectively evaluated. Only compression techniques in the calf on the peroneal and posterior tibial veins was attempted/performed. FINDINGS: There is no abnormal echogenic material seen within any of the visualized deep venous structures that would suggest acute thrombosis. Coaptation is unremarkable throughout. Doppler interrogation shows an expected response to respiratory variability and augmentation in the thigh. Compression techniques in the calf showed no abnormality. The color flow images show what appears to be a normal vascular pattern throughout the thigh. Bilateral deep vein reflux study On the right: No reflux is seen in the common femoral vein No reflux is seen in the anterior accessory greater saphenous vein which measures 5 mm. There is no greater saphenous vein identifiable. No reflux was seen in any portion of the superficial femoral vein, popliteal vein, or lesser saphenous vein the AP dimension of which measured 2.9 mm. On the left: No reflux is seen in the common femoral vein An anterior accessory greater saphenous vein is not present. All portions of the greater saphenous vein are occluded. No reflux is seen in any portion of the superficial femoral vein, popliteal vein, or lesser saphenous vein the AP dimension of which measured 1.3 mm. IMPRESSION: There is no ultrasonographic evidence of deep venous thrombosis involving any of the visualized deep venous structures of the bilateral lower extremity as described above. Reflux study as described above. <Electronically signed by Alec Scott > 02/13/21 [id number]
== END ==
LOC: M RAD 10:56
PROVIDERS: ATTEND Radiology Diagnostic Radiology
DX: I83.93 Asymptomatic varicose veins of bilateral lower extremities (principal); I80.02 Phlebitis and thrombophlebitis of superficial vessels of left lower extremity

== ENCOUNTER → 2021-06-03 | Outpatient (CLI) | payer MEDICARE, MEDICAID ==
[2021-06-03 12:12] LABS: BASO % 0.1 % (0.0-1.0); HEMATOCRIT 39.1 % (36.0-47.0); HEMOGLOBIN 12.9 g/dl (12.0-15.5); LYMPH # 2.5 10^3/uL (1.5-5.0); LYMPH % 31.6 % (24.0-44.0); MEAN CORPUSCULAR HEMOGLOBIN 32.5 pg (27.0-33.0); MEAN CORPUSCULAR VOLUME 98.5 fl (80.0-96.0); MONO # 0.4 10^3/uL (0.0-0.8); MONO % 5.5 % (2.0-8.0); NEUTROPHILS % 62.5 % (36.0-66.0); PLATELET COUNT, AUTOMATED 135 10^3/uL (150-450); RED BLOOD COUNT 3.97 10^6/uL (4.00-5.40); WHITE BLOOD COUNT 7.9 10^3/uL (4.0-10.0)
[2021-06-03 12:51] LABS: ALT/SGPT 23 U/L (12-78); BILIRUBIN,TOTAL 0.2 MG/DL (0.2-1.0); BLOOD UREA NITROGEN 14 MG/DL (7-18); CALCIUM LEVEL 9.5 MG/DL (8.5-10.1); CARBAMAZEPINE (TEGRETOL) LEVEL 6.7 UG/ML (4.0-10.0); CARBON DIOXIDE LEVEL 25 MEQ/L (21-32); CHLORIDE LEVEL 107 MEQ/L (98-107); CHOLESTEROL LEVEL 181 MG/DL (<200); CREATININE FOR GFR 0.58 MG/DL (0.55-1.30); GLOMERULAR FILTRATION RATE > 60.0 (>51); GLUCOSE, FASTING 106 MG/DL (70-100); HDL CHOLESTEROL 48 MG/DL (>40); LDL CHOLESTEROL 103 MG/DL (<100); LITHIUM LEVEL 0.73 MEQ/L (0.60-1.20); NON-HDL-C 133 MG/DL; POTASSIUM SERUM 4.1 MEQ/L (3.5-5.1); PROLACTIN 1.5 NG/ML; SODIUM LEVEL 140 MEQ/L (136-145); TOTAL PROTEIN 7.5 GM/DL (6.4-8.2); TRIGLYCERIDES LEVEL 151 MG/DL (<150)
== END ==
LOC: M WUC 09:05
PROVIDERS: ATTEND Physician Assistant
DX: Z51.81 Encounter for therapeutic drug level monitoring (principal); Z79.899 Other long term (current) drug therapy

== ENCOUNTER → 2021-06-10 | Outpatient (POV) | payer MEDICARE, MEDICAID ==
[~2021-06-10] VITALS: Ht 160 cm; Wt 84.0 kg
[2021-06-10 09:50] VITALS: BP 133/84
== END ==
LOC: M IRPOV 09:38
PROVIDERS: ATTEND Radiology Diagnostic Radiology
DX: I83.891 Varicose veins of right lower extremity with other complications (principal); J30.2 Other seasonal allergic rhinitis; Z88.0 Allergy status to penicillin; Z88.1 Allergy status to other antibiotic agents; Z88.5 Allergy status to narcotic agent

== ENCOUNTER → 2021-06-23 | Outpatient (RCR) | payer MEDICARE, MEDICAID ==
[~2021-06-23] MED LIST changes: -D31000TA2 PO; +VITA100093 PO
== END ==
LOC: M PT 06-12 13:25
PROVIDERS: ATTEND Family Medicine
DX: M25.561 Pain in right knee (principal); M25.562 Pain in left knee

== ENCOUNTER → 2021-10-01 | Outpatient (CLI) | payer MEDICARE, MEDICAID ==
[~2021-10-01] MED LIST changes: +BENZ1LOZ9 PO; -CEPALOZ8 PO
== END ==
LOC: M RAD 12:38
PROVIDERS: ATTEND Family Medicine
DX: Z12.2 Encounter for screening for malignant neoplasm of respiratory organs (principal); F17.210 Nicotine dependence, cigarettes, uncomplicated; R91.1 Solitary pulmonary nodule

== ENCOUNTER → 2021-12-31 | Outpatient (CLI) | payer MEDICARE, MEDICAID | LOC: M WHC 10:01 | PROVIDERS: ATTEND Physician Assistant | DX: Z12.31 Encounter for screening mammogram for malignant neoplasm of breast (principal) ==

== ENCOUNTER → 2022-03-11 | Outpatient (REF) | payer MEDICARE, MEDICAID | LOC: M SFHCLERA 09:59 | PROVIDERS: ATTEND Family Medicine | DX: R91.1 Solitary pulmonary nodule (principal) ==

== ENCOUNTER → 2022-03-23 | Outpatient (CLI) | payer MEDICARE, MEDICAID ==
[2022-03-23 12:50] LABS: BASO % 0.1 % (0.0-1.0); HEMATOCRIT 40.2 % (36.0-47.0); HEMOGLOBIN 12.9 g/dl (12.0-15.5); LYMPH # 2.3 10^3/uL (1.5-5.0); LYMPH % 29.3 % (24.0-44.0); MEAN CORPUSCULAR HEMOGLOBIN 31.7 pg (27.0-33.0); MEAN CORPUSCULAR HGB CONC 32.1 g/dl (32.0-36.5); MEAN CORPUSCULAR VOLUME 98.8 fl (80.0-96.0); MONO # 0.5 10^3/uL (0.0-0.8); MONO % 6.5 % (2.0-8.0); NEUTROPHILS # 4.9 10^3/uL (1.5-8.5); NEUTROPHILS % 63.7 % (36.0-66.0); PLATELET COUNT, AUTOMATED 144 10^3/uL (150-450); RED BLOOD COUNT 4.07 10^6/uL (4.00-5.40); WHITE BLOOD COUNT 7.8 10^3/uL (4.0-10.0)
[2022-03-23 14:00] LABS: CHLORIDE LEVEL 104 MMOL/L (98-107); SODIUM LEVEL 140 MMOL/L (136-145)
[2022-03-23 14:01] LABS: ALBUMIN 3.8 G/DL (3.2-5.2); CARBON DIOXIDE LEVEL 27 MMOL/L (20-31)
[2022-03-23 14:05] LABS: TRIGLYCERIDES LEVEL 101 MG/DL (<150)
[2022-03-23 14:06] LABS: BLOOD UREA NITROGEN 10 MG/DL (9-23); CALCIUM LEVEL 9.1 MG/DL (8.5-10.1); GLUCOSE, FASTING 103 MG/DL (60-100)
[2022-03-23 14:07] LABS: ALKALINE PHOSPHATASE 90 U/L (46-116)
[2022-03-23 14:08] LABS: ALT/SGPT 21 U/L (7.0-40); AST/SGOT 17 U/L (<34); BILIRUBIN,TOTAL 0.3 MG/DL (0.3-1.2); CHOLESTEROL LEVEL 136 MG/DL (<200); CHOLESTEROL RISK RATIO 3.23 (<5); CREATININE FOR GFR 0.56 MG/DL (0.55-1.30); GLOMERULAR FILTRATION RATE > 60.0 (>51); HDL CHOLESTEROL 42.1 MG/DL (>40); LDL CHOLESTEROL 73.7 MG/DL (<100); NON-HDL-C 94 MG/DL; TOTAL PROTEIN 7.1 G/DL (5.7-8.2)
[2022-03-23 14:11] LABS: THYROID STIMULATING HORMONE 0.623 uIU/ML (0.55-4.78)
[2022-03-23 14:43] LABS: POTASSIUM SERUM 4.9 MMOL/L (3.5-5.1)
== END ==
LOC: M WUC 09:04
PROVIDERS: ATTEND Physician Assistant
DX: Z79.899 Other long term (current) drug therapy (principal)

== ENCOUNTER → 2022-03-23 | Outpatient (CLI) | payer MEDICARE, MEDICAID ==
[2022-03-23 13:31] LABS: BLOOD UREA NITROGEN 10 MG/DL (9-23); CREATININE FOR GFR 0.57 MG/DL (0.55-1.30); GLOMERULAR FILTRATION RATE > 60.0 (>51)
== END ==
LOC: M WUC 08:59
PROVIDERS: ATTEND Family Medicine
DX: R91.1 Solitary pulmonary nodule (principal)

== ENCOUNTER → 2022-03-30 | Outpatient (CLI) | payer MEDICARE, MEDICAID ==
[~2022-03-30] MED LIST changes: +ISOVUE-370 76% 100ML VIAL As Ordered ONE
== END ==
LOC: M RAD 13:54
PROVIDERS: ATTEND Family Medicine
DX: R91.1 Solitary pulmonary nodule (principal); I51.7 Cardiomegaly; J84.10 Pulmonary fibrosis, unspecified
CPT/HCPCS: 71260; Q9967

== ENCOUNTER → 2022-04-07 | Outpatient (CLI) | payer MEDICARE, MEDICAID ==
[~2022-04-07] MED LIST changes: -ISOVUE-370 76% 100ML VIAL As Ordered ONE
== END ==
LOC: M RAD 06:58
PROVIDERS: ATTEND Family Medicine
DX: R16.1 Splenomegaly, not elsewhere classified (principal)

== ENCOUNTER → 2022-07-21 | Outpatient (CLI) | payer MEDICARE, MEDICAID ==
[2022-07-21 07:57] LABS: BASO % 0.1 % (0.0-1.0); HEMATOCRIT 39.7 % (36.0-47.0); HEMOGLOBIN 13.2 g/dl (12.0-15.5); LYMPH # 2.9 10^3/uL (1.5-5.0); MEAN CORPUSCULAR HEMOGLOBIN 31.9 pg (27.0-33.0); MEAN CORPUSCULAR HGB CONC 33.2 g/dl (32.0-36.5); MEAN CORPUSCULAR VOLUME 95.9 fl (80.0-96.0); MONO # 0.5 10^3/uL (0.0-0.8); MONO % 6.2 % (2.0-8.0); NEUTROPHILS # 4.5 10^3/uL (1.5-8.5); NEUTROPHILS % 56.4 % (36.0-66.0); PLATELET COUNT, AUTOMATED 121 10^3/uL (150-450); RED BLOOD COUNT 4.14 10^6/uL (4.00-5.40)
[2022-07-21 08:19] LABS: ALBUMIN 3.8 G/DL (3.2-5.2); ALKALINE PHOSPHATASE 96 U/L (46-116); ALT/SGPT 21 U/L (7.0-40); AST/SGOT 17 U/L (<34); BILIRUBIN,TOTAL 0.3 MG/DL (0.3-1.2); BLOOD UREA NITROGEN 15 MG/DL (9-23); CALCIUM LEVEL 9.3 MG/DL (8.5-10.1); CARBON DIOXIDE LEVEL 27 MMOL/L (20-31); CHLORIDE LEVEL 106 MMOL/L (98-107); CHOLESTEROL LEVEL 122 MG/DL (<200); CHOLESTEROL RISK RATIO 3.09 (<5); GLOMERULAR FILTRATION RATE > 60.0 (>51); GLUCOSE, FASTING 101 MG/DL (60-100); HDL CHOLESTEROL 39.4 MG/DL (>40); LDL CHOLESTEROL 58.8 MG/DL (<100); NON-HDL-C 82.6 MG/DL; POTASSIUM SERUM 4.2 MMOL/L (3.5-5.1); SODIUM LEVEL 138 MMOL/L (136-145); TOTAL PROTEIN 7.2 G/DL (5.7-8.2); TRIGLYCERIDES LEVEL 119 MG/DL (<150)
[2022-07-21 08:54] LABS: HEMOGLOBIN A1c 5.1 % (4.0-6.0)
== END ==
LOC: M LAB 06:46
PROVIDERS: ATTEND Family Medicine
DX: E66.01 Morbid (severe) obesity due to excess calories (principal); E78.5 Hyperlipidemia, unspecified; F71 Moderate intellectual disabilities; Z79.899 Other long term (current) drug therapy

== ENCOUNTER → 2023-03-23 | Outpatient (CLI) | payer MEDICARE, MEDICAID | LOC: M WUC 12:48 | PROVIDERS: ATTEND Nurse Practitioner Family | DX: M79.661 Pain in right lower leg (principal); M25.571 Pain in right ankle and joints of right foot; M79.89 Other specified soft tissue disorders ==

== ENCOUNTER → 2023-04-14 | Outpatient (CLI) | payer MEDICARE, MEDICAID ==
[2023-04-14 08:11] LABS: HEMATOCRIT 39.8 % (36.0-47.0); HEMOGLOBIN 13.2 g/dl (12.0-15.5); LYMPH # 2.1 10^3/uL (1.5-5.0); LYMPH % 29.3 % (24.0-44.0); MEAN CORPUSCULAR HEMOGLOBIN 32.4 pg (27.0-33.0); MEAN CORPUSCULAR HGB CONC 33.2 g/dl (32.0-36.5); MEAN CORPUSCULAR VOLUME 97.8 fl (80.0-96.0); MONO # 0.3 10^3/uL (0.0-0.8); MONO % 4.8 % (2.0-8.0); NEUTROPHILS # 4.7 10^3/uL (1.5-8.5); NEUTROPHILS % 65.5 % (36.0-66.0); PLATELET COUNT, AUTOMATED 144 10^3/uL (150-450); RED BLOOD COUNT 4.07 10^6/uL (4.00-5.40); WHITE BLOOD COUNT 7.1 10^3/uL (4.0-10.0)
[2023-04-14 08:39] LABS: HEMOGLOBIN A1c 4.7 % (4.0-6.0)
[2023-04-14 08:41] LABS: ALBUMIN 3.9 G/DL (3.2-5.2); ALKALINE PHOSPHATASE 108 U/L (46-116); ALT/SGPT 15 U/L (7.0-40); AST/SGOT 12 U/L (<34); BILIRUBIN,TOTAL 0.3 MG/DL (0.3-1.2); BLOOD UREA NITROGEN 14 MG/DL (9-23); CALCIUM LEVEL 9.6 MG/DL (8.5-10.1); CARBON DIOXIDE LEVEL 26 MMOL/L (20-31); CHLORIDE LEVEL 109 MMOL/L (98-107); CHOLESTEROL LEVEL 161 MG/DL (<200); CHOLESTEROL RISK RATIO 3.83 (<5); CREATININE FOR GFR 0.58 MG/DL (0.55-1.30); GLOMERULAR FILTRATION RATE > 60.0 (>51); GLUCOSE, FASTING 103 MG/DL (60-100); SODIUM LEVEL 141 MMOL/L (136-145); TOTAL PROTEIN 7.3 G/DL (5.7-8.2); TRIGLYCERIDES LEVEL 105 MG/DL (<150)
[2023-04-14 08:42] LABS: LITHIUM LEVEL 0.66 MMOL/L (1.0-1.20)
[2023-04-14 08:43] LABS: THYROID STIMULATING HORMONE 2.573 uIU/ML (0.55-4.78)
== END ==
LOC: M LAB 06:57
PROVIDERS: ATTEND Physician Assistant
DX: Z79.899 Other long term (current) drug therapy (principal)

== ENCOUNTER → 2023-06-11 | Outpatient (CLI) | payer MEDICARE, MEDICAID | LOC: M RAD 13:29 | PROVIDERS: ATTEND Family Medicine | DX: Z12.2 Encounter for screening for malignant neoplasm of respiratory organs (principal); F17.210 Nicotine dependence, cigarettes, uncomplicated; R91.8 Other nonspecific abnormal finding of lung field; J98.4 Other disorders of lung ==

== ENCOUNTER → 2023-07-12 | Outpatient (CLI) | payer MEDICARE, MEDICAID | LOC: M PLARAD 08:31 | PROVIDERS: ATTEND Family Medicine | DX: R91.1 Solitary pulmonary nodule (principal) ==

== ENCOUNTER → 2023-08-05 | Outpatient (CLI) | payer MEDICARE, MEDICAID | LOC: M WHC 12:37 | PROVIDERS: ATTEND Surgery | DX: Z12.31 Encounter for screening mammogram for malignant neoplasm of breast (principal) ==

== ENCOUNTER → 2024-05-24 | Outpatient (CLI) | payer MEDICARE, MEDICAID ==
[~2024-05-24] MED LIST changes: +ISOVUE-370 76% 100ML VIAL ONE
== END ==
LOC: M PLAIMG 07:29
PROVIDERS: ATTEND Family Medicine
DX: R91.1 Solitary pulmonary nodule (principal); I70.0 Atherosclerosis of aorta; J98.11 Atelectasis; R16.2 Hepatomegaly with splenomegaly, not elsewhere classified
CPT/HCPCS: 71260; Q9967

== ENCOUNTER → 2024-08-08 | Outpatient (CLI) | payer MEDICARE, MEDICAID ==
[~2024-08-08] MED LIST changes: -ISOVUE-370 76% 100ML VIAL ONE
== END ==
LOC: M WHC 07:38
PROVIDERS: ATTEND Family Medicine
DX: Z12.31 Encounter for screening mammogram for malignant neoplasm of breast (principal)

== ENCOUNTER → 2024-11-01 | Outpatient (CLI) | payer MEDICARE, MEDICAID ==
[~2024-11-01] MED LIST changes: +ALBU8.5H; -AMBI10TA PO; +AMMO12CR4 TOP; -AMMO12CR7 TOP; +ARIP30TA38 PO; +LOPI600T PO; +MULTTAB61 PO; +OLAN1TAB20 PO; +OLAN20TA74 PO; +OMEP-173 PO; +PRAZ1CAP PO; +PRAZ2CAP PO; +SENN-188 PO; +ZOLP-533 PO; -ZYPR20TA PO
[2024-11-01 12:58] LABS: BASO # 0.0 10^3/uL (0.0-0.2); BASO % 0.2 % (0.0-1.0); EOS # 0.0 10^3/uL (0.0-0.5); EOS % 0.0 % (0.0-3.0); LYMPH # 1.8 10^3/uL (1.5-5.0); LYMPH % 32.8 % (24.0-44.0); MONO # 0.3 10^3/uL (0.0-0.8); MONO % 5.5 % (2.0-8.0); NEUTROPHILS # 3.3 10^3/uL (1.5-8.5); NEUTROPHILS % 61.3 % (36.0-66.0); PLATELET COUNT, AUTOMATED 106 10^3/uL (150-450)
[2024-11-01 13:01] LABS: LITHIUM LEVEL 0.67 MMOL/L (1.0-1.20)
[2024-11-01 13:02] LABS: ALT/SGPT 13 U/L (7.0-40); AST/SGOT 16 U/L (<34); CALCIUM LEVEL 9.3 MG/DL (8.5-10.1); CARBON DIOXIDE LEVEL 26 MMOL/L (20-31); CHLORIDE LEVEL 108 MMOL/L (98-107); CHOLESTEROL LEVEL 138 MG/DL (<200); CHOLESTEROL RISK RATIO 3.04 (<5); CREATININE FOR GFR 0.61 MG/DL (0.55-1.30); GLOMERULAR FILTRATION RATE > 90.0 (>51); LDL CHOLESTEROL 78.7 MG/DL (<100); NON-HDL-C 92.7 MG/DL; POTASSIUM SERUM 4.1 MMOL/L (3.5-5.1); SODIUM LEVEL 143 MMOL/L (136-145); TRIGLYCERIDES LEVEL 70 MG/DL (<150)
== END ==
LOC: M WUC 08:50
PROVIDERS: ATTEND Family Medicine
DX: Z00.00 Encounter for general adult medical examination without abnormal findings (principal); Z51.81 Encounter for therapeutic drug level monitoring; E78.00 Pure hypercholesterolemia, unspecified

== ENCOUNTER 2024-11-15 08:00 | Day surgery (SDC) | payer MEDICARE, MEDICAID ==
[~2024-11-15] VITALS: Ht 160 cm; Wt 82.3 kg
[2024-11-15 09:46] VITALS: TEMP 97.9
[2024-11-15 10:08] VITALS: BP 150/86; O2SAT 94
== END 2024-11-15 10:10 | disposition home or self-care (01) ==
LOC: M OPP 08:00
PROVIDERS: ATTEND Surgery
DX: Z12.11 Encounter for screening for malignant neoplasm of colon (principal); D12.6 Benign neoplasm of colon, unspecified; K63.89 Other specified diseases of intestine; G47.30 Sleep apnea, unspecified; Z88.0 Allergy status to penicillin; Z88.1 Allergy status to other antibiotic agents; Z88.5 Allergy status to narcotic agent; Z88.8 Allergy status to other drugs, medicaments and biological substances; Z91.048 Other nonmedicinal substance allergy status; Z79.899 Other long term (current) drug therapy; J45.909 Unspecified asthma, uncomplicated; F17.210 Nicotine dependence, cigarettes, uncomplicated

== ENCOUNTER → 2025-01-04 | Outpatient (REF) | payer MEDICARE, MEDICAID ==
[~2025-01-04] MED LIST changes: +CARB-19 PO; -CARB1TAB20 PO
[2025-01-04 13:35] LABS: APPEARANCE, URINE CLOUDY (CLEAR); BACTERIA, URINE AUTO 3+ (NEGATIVE); BILIRUBIN, URINE AUTO NEGATIVE (NEGATIVE); BLOOD, URINE BLOOD 1+ (NEGATIVE); GLUCOSE, URINE (UA) AUTO NEGATIVE (NEGATIVE); KETONE, URINE AUTO NEGATIVE (NEGATIVE); LEUKOCYTE ESTERASE, URINE AUTO 3+ (NEGATIVE); NITRITE, URINE AUTO NEGATIVE (NEGATIVE); PROTEIN, URINE AUTO 2+ mg/dL (NEGATIVE); RBC, URINE AUTO 8 /HPF (0-3); SPECIFIC GRAVITY URINE AUTO 1.014 (1.002-1.035); SQUAMOUS EPITHELIAL CELL UR AU 0 /HPF (0-6); UROBILINOGEN, URINE AUTO 0.2 mg/dL (0.0-2.0); WBC, URINE AUTO TNTC /HPF (0-3)
[2025-01-06 13:57] LABS: HPV APTIMA Not Detected (Not Detected)
== END ==
LOC: M SFHCWAGY 12:39
PROVIDERS: ATTEND Nurse Practitioner Family
DX: R30.0 Dysuria (principal); N73.9 Female pelvic inflammatory disease, unspecified; Z12.4 Encounter for screening for malignant neoplasm of cervix
CPT/HCPCS: 81001; 87070; 87088; 87186; 87624; G0123